=== PATIENT | female | born 1985 | race Caucasian/White ===

== ENCOUNTER 2017-03-05 14:18 | Observation (INO) | payer OTHER ==
[~2017-03-05] VITALS: Ht 162.6 cm; Wt 69.8 kg
[~2017-03-05 14:18] MED LIST changes: -ACET-1256 PO; -HYDR-5688 PO; -ULT50X PO
[2017-03-05] MEDS ORDERED: ONDANSETRON INJ 2 MG/ML 2 ML VIAL IV STA (15:03)
[2017-03-05] MEDS ORDERED: HYDROmorphone INJ 1 MG/ML SYR IV STA (15:03)
[2017-03-05] MEDS ORDERED: SODIUM CHLORIDE 0.9% 1000ML 1,000 ML IV STA (15:03)
[2017-03-05] MEDS ORDERED: DEXAMETHASONE SOD INJ 10 MG/ML VIAL IV ONE (15:15)
[2017-03-05] MEDS ORDERED: ACET-1256 PO (15:15)
--- NOTE | 2017-03-05 15:31 | DIAGNOSTIC IMAGING REPORT ---
CHEST ONE VIEW PORTABLE CLINICAL HISTORY: CHEST PAIN, PRE-OP preoperative COMPARISON STUDY: No previous studies for comparison. FINDINGS: The bones soft tissues and hemidiaphragms are normal. The cardiomediastinal silhouette is normal. The lungs are clear. The pulmonary vasculature is normal. IMPRESSION: Negative chest. Electronically signed by: Juan Marc M.D. 03/05/2017 3:30 PM Dictated Date/Time: 03/05/2017 3:30 PM
[2017-03-05 15:38] LABS: ISTAT CREATININE 0.9 mg/dl (0.6-1.3); ISTAT HEMOGLOBIN 14.3 g/dl (12.0-16.0); ISTAT IONIZED CALCIUM 1.18 mmol/l (1.12-1.32)
[2017-03-05 15:49] LABS: PROTHROMBIN TIME (PATIENT) 10.5 SECONDS (9.0-12.0)
[2017-03-05 16:01] LABS: ALKALINE PHOSPHATASE 56 U/L (45-117); ALT/SGPT 28 U/L (12-78); AST/SGOT 15 U/L (15-37)
[2017-03-05] MEDS ORDERED: LORAZEPAM 2 MG/ML 1 ML VIAL IV STA (16:11)
[2017-03-05] MEDS ORDERED: HYDROmorphone INJ 0.5 MG/0.5 ML SYR IV STA (16:11)
--- NOTE | 2017-03-05 16:27 | EMERGENCY ROOM VISIT NOTE ---
History First contact with patient: 14:46 Chief Complaint: BACK PAIN Stated Complaint: EXTREME PAIN IN NECK, HERNIATED DISC History of Present Illness The patient is a 31 year old female who presents to the Emergency Room with complaints of a bandlike sensation around her mid thorax and chest with mild shortness of breath. The patient reports that she has a known history of several cervical herniated disks. She is scheduled for a cervical fusion this coming Thursday, or 4 days from now. Her surgeon is Dr. Muir. The patient was in her preanesthesia consultation when she developed this pain. She reports that she has had bilateral upper extremity pain and numbness due to her neck condition, but has never had any pain in the middle of her back. The patient denies any anterior chest pressure or diaphoresis. She has had some nausea. The patient has been taking Tylenol without relief. She was able to have some relief with ibuprofen, but cannot take ibuprofen because of her planned surgery. Tramadol causes headaches, and Percocet causes nausea and vomiting. She was seen here recently and treated with morphine without relief. She does not recall being administered Dilaudid for pain either on her previous ER visit or prior pain management. She rates her discomfort a 10 out of 10. The patient denies any cardiopulmonary history. She reports that her mother has had bilateral PEs, and the patient has also had several miscarriages. She did have a comprehensive hematology workup that was normal. Review of Systems HEENT: Denies dizziness, visual problems, hearing loss, tinnitus. Denies difficulty swallowing or oral lesions. PULMONARY: Denies cough, shortness of breath, sputum production or hemoptysis. CARDIOVASCULAR: See history of present illness, otherwise denies palpitations, dyspnea on exertion, orthopnea or peripheral edema. GASTROINTESTINAL: Denies diarrhea, constipation, vomiting, or abdominal pain. GENITOURINARY: Denies dysuria, frequency, urgency or nocturia. NEUROLOGIC: Denies history of epilepsy, CVA, TIA or chronic headaches. MUSCULOSKELETAL: Denies history of joint tenderness/swelling. SKIN: Denies rashes or lesions. PSYCHIATRIC: Denies history of depression or mental illness. ENDOCRINE: Denies history of diabetes or thyroid disorders. Past Medical/Surgical History Medical Problems: (1) Herniation of intervertebral disc of cervical region (2) Pelvic pain affecting in first trimester, antepartum Family History Diabetes mellitus Hypertension Social History Smoking Status: Former Smoker Alcohol Use: none Drug Use: none Marital Status: Housing Status: lives with family Occupation Status: employed Current/Historical Medications Scheduled Metoprolol Succ (Toprol Xl) (Toprol-Xl), 12.5 MG PO HS Ranitidine Hcl (Zantac), 150 MG PO PRN Tizanidine (Zanaflex), 4 MG PO Q6H Scheduled PRN Acetaminophen (Tylenol), 1,000 MG PO Q6 PRN for Pain Allergies Coded Allergies: Latex (Verified Allergy, Mild, HIVES, 03/05/17) Nickel (Unverified Allergy, Unknown, RASH,ITCHING WITH JEWELRY, 03/05/17) Oxycodone (Unverified Allergy, Unknown, NAUSEA AND ABD PAIN, 03/05/17) Physical Exam Vital Signs Date Time Temp Pulse Resp B/P (MAP) Pulse Ox O2 Delivery O2 Flow Rate FiO2 03/05/17 14:38 37.4 72 20 113/80 97 Room Air Physical Exam CONSTITUTIONAL: Healthy and well nourished. Alert and oriented X 3 with positive affect. Patient appears in moderately severe discomfort. HEENT: Normocephalic, atraumatic. Pupils equal, round and reactive. Ears and nares are clear. NECK: She has discomfort with any range of motion of the neck. RESPIRATORY: Clear to auscultation bilaterally with no wheezing, crackles, rhonchi or stridor. CARDIOVASCULAR: Regular rate and rhythm with no murmurs, rubs or gallops. GASTROINTESTINAL: Bowel sounds present in all quadrants. Soft and nontender to palpation. MUSCULOSKELETAL: The patient has generalized tenderness to palpation through the middle thoracic region and ribs. She has no pain through the costochondral joints. No other tenderness to palpation through the paraspinous muscles. The patient has equal hand tire shop mechanic bilaterally. Ankle plantar/dorsiflexion strength is 5 out of 5 bilaterally. INTEGUMENTARY: No rash or other significant dermatologic conditions noted. Particularly the patient has no dermatomal thoracic rash. HEMATOLOGIC: No ecchymosis or petechiae. NEUROLOGIC: No focal neurologic deficits noted within the thorax. Bilateral upper extremity median, radial and ulnar motor and sensory are intact. Medical Decision & Procedures ER Provider Diagnostic Interpretation: My interpretation of the patient's recent ECG performed at 1:19 PM showed a sinus rhythm with premature supraventricular complex. There were no other previous ECGs for comparison. ECG evaluation in the emergency department again showed a sinus rhythm of 66 bpm with a premature atrial complex. No ST elevation or other concerning conduction abnormalities are noted. My interpretation of a portable chest x-ray does not show any consolidations, pneumothorax or cardiac prominence. Radiologist report is as follows: CHEST ONE VIEW PORTABLE CLINICAL HISTORY: CHEST PAIN, PRE-OP preoperative COMPARISON STUDY: No previous studies for comparison. FINDINGS: The bones soft tissues and hemidiaphragms are normal. The cardiomediastinal silhouette is normal. The lungs are clear. The pulmonary vasculature is normal. IMPRESSION: Negative chest. Laboratory Results Test 03/05/17 15:20 03/05/17 15:25 Prothrombin Time 10.5 SECONDS (9.0-12.0) Prothromb Time International Ratio 1.0 (0.9-1.1) Activated Partial Thromboplast Time 25.0 SECONDS (21.0-31.0) Partial Thromboplastin Ratio 1.0 D-Dimer 290 ug/L FEU (0-500) Total Bilirubin 0.3 mg/dl (0.2-1) Direct Bilirubin < 0.1 mg/dl (0-0.2) Aspartate Amino Transf (AST/SGOT) 15 U/L (15-37) Alanine Aminotransferase (ALT/SGPT) 28 U/L (12-78) Alkaline Phosphatase 56 U/L (45-117) Troponin I < 0.015 ng/ml (0-0.045) Total Protein 7.9 gm/dl (6.4-8.2) Albumin 4.3 gm/dl (3.4-5.0) Lipase 115 U/L (73-393) Bedside Hemoglobin 14.3 g/dl (12.0-16.0) Bedside Hematocrit 42 % (37-47) Bedside Sodium 140 mEq/L (135-144) Bedside Potassium 4.3 mEq/L (3.3-5.0) Bedside Chloride 100 mEq/L (101-112) Bedside Total CO2 26 mEq/l (24-31) Anion Gap 19.0 mmol/L (16-25) Bedside Blood Urea Nitrogen 14 mg/dl (7-18) Bedside Creatinine 0.9 mg/dl (0.6-1.3) Bedside Glucose (other) 94 mg/dl (70-99) Bedside Ionized Calcium (Dev) 1.18 mmol/l (1.12-1.32) The above labs were reviewed and were grossly normal, including normal d-dimer and troponin. I also reviewed laboratory studies that were just drawn a few hours ago for preop testing. Medications Administered Medications (Trade) Dose Ordered Sig/Kandace Route Start Time Stop Time Status Last Admin Dose Admin Dexamethasone Sodium Phosphate (Decadron Inj) 10 mg NOW ONCE IV 03/05/17 15:15 03/05/17 15:16 DC 03/05/17 15:39 10 MG Hydromorphone HCl (Dilaudid Inj) 1 mg NOW STAT IV 03/05/17 15:03 03/05/17 15:09 DC 03/05/17 15:37 1 MG Sodium Chloride 1,000 ml @ 999 mls/hr Q1H1M STAT IV 03/05/17 15:03 03/05/17 16:03 DC 03/05/17 15:39 999 MLS/HR Ondansetron HCl (Zofran Inj) 4 mg NOW STAT IV 03/05/17 15:03 03/05/17 15:09 DC 03/05/17 15:37 4 MG Procedure 1. IV hydration: The patient received a liter normal saline bolus 2. IV medications: The patient was administered Dilaudid 1 mg, Zofran 4 mg and Decadron 10 mg IVP. The patient was administered an additional Dilaudid 0.5 mg and Ativan 0.5 mg IVP. ED Course Patient history and physical exam were performed. Nurse's notes were reviewed. Vital signs were reviewed and normal. The patient is afebrile, normotensive and not tachycardic. O2 saturation is 97% on room air. The patient appears in moderately severe discomfort. I did review medical records, showing that the patient's preoperative labs are currently pending with a normal CBC and urinalysis. The patient also had a copy of her MRI results on her smartphone. Quick review of the radiologist report shows a small to moderate disc herniation at C3-4 with an annular tear, as well as a central to right paracentral C6-7 hernia. Because of concern for possible cardiopulmonary etiology for her current pain, I did elect to perform additional laboratory studies. IV access was established , and labs were drawn. The patient was hydrated with normal saline, and received IV analgesics as discussed in the previous Procedure section. Repeat ECG was performed and grossly normal with only a premature atrial complex. I also reviewed her ECG that was ordered for her preoperative labs, showing the same pattern. Portable chest x-ray was normal. Review of labs in the ED shows a normal d-dimer and troponin, therefore I feel that her risk for PE and cardiac event are unlikely. Upon further reevaluation, the patient was complaining of a twitching sensation around her mid thoracic region, and feels like she is nervous. She also still had moderate pain. At this point, she was administered IV Dilaudid and Ativan. The case was further discussed with Dr. Chapman, ED attending physician, who agrees with contacting Dr. Muir regarding her intractable pain, likely secondary to her cervical herniated disc. Case was further discussed with Dr. Muir who will schedule the patient for surgery first thing in the morning. The patient will be placed in observation status for intractable pain, with planned surgery in the morning. Medical Decision Patient presents with symptoms while undergoing preoperative testing at our facility. The patient has a known history of herniated cervical disc. The patient developed a new pressure like sensation around her mid thorax. Her workup today is not suggestive of pulmonary embolus, myocardial infarction, pneumothorax, pneumonia or other acute intrathoracic etiology. The patient has had a recent MRI that was reviewed by her spine surgeon with a planned cervical fusion. Impression Primary Impression: Thoracic back pain Additional Impression: Cervical disc herniation Departure Information Referrals Jamie Gamino M.D. (PCP) Patient Instructions [facility] Problem Qualifiers Primary Impression: Thoracic back pain Chronicity: acute Back pain laterality: bilateral Qualified Codes: M54.6 - Pain in thoracic spine
[2017-03-05] MEDS: LACTATED RINGER'S 1000ML 1,000 ML IV SCH (16:32)
[2017-03-05] MEDS ORDERED: TRAMADOL HCL 50 MG TAB PO PRN (16:45)
[2017-03-05] MEDS ORDERED: LORAZEPAM INJ 1 MG in SYRINGE 0.5 ML IV PRN (16:45)
[2017-03-05] MEDS ORDERED: ACETAMINOPHEN 325 MG TAB PO PRN (16:45)
[2017-03-05] MEDS ORDERED: LORAZEPAM 1 MG TAB PO PRN (16:45)
[2017-03-05 16:55] LABS: PREG INTERNAL NEGATIVE QC NEG CLEAR BACKGROUND; PREG INTERNAL POSITIVE QC POS CONTROL LINE
[2017-03-05 16:57] LABS: BASO % 0.7 %; BASO ABS # 0.06 K/uL (0-0.2); COMPLETE YES; EOS % 1.3 %; HEMATOCRIT 41.1 % (37-47); IG% 0.2 %; LYMPH % 35.4 %; LYMPH ABS # 3.11 K/uL (1.2-3.4); MEAN CORPUSCULAR HEMOGLOBIN 31.2 pg (25-34); MEAN CORPUSCULAR HGB CONC 33.6 g/dl (32-36); MEAN PLATELET VOLUME 9.9 fL (7.4-10.4); NEUT % 56.4 %; PLATELET COUNT 238 K/uL (130-400); RED BLOOD COUNT 4.42 M/uL (4.2-5.4); WHITE BLOOD COUNT 8.79 K/uL (4.8-10.8)
[2017-03-05 17:00] LABS: BLOOD UREA NITROGEN 12 mg/dl (7-18); BUN/CREATININE RATIO 10.8 (10-20); CALCIUM 9.2 mg/dl (8.5-10.1); CHLORIDE 105 mmol/L (98-107); GLUCOSE 92 mg/dl (70-99); POTASSIUM 4.5 mmol/L (3.5-5.1); SODIUM 139 mmol/L (136-145)
[2017-03-05] MEDS ORDERED: IV FLUIDS COMPLETED PRN (17:00)
--- NOTE | 2017-03-05 17:17 | History and Physical ---
History & Physical Date & Time of Service: Mar 05, 2017 at 17:13 Chief Complaint: Extreme Pain In Neck, Herniated Disc Primary Care Physician: Jamie Gamino M.D. History of Present Illness Source: patient 31-year-old [id number] female partially one-month severe neck and arm pain. An extensive course of nonoperative care including a trial of epidural injections. Complains of significant bilateral arm pain left greater than right. Marked difficulty with cervical range of motion secondary to reproduction of pain. She notes clumsiness and difficulty using her hands with fine motor skills. Also notes changes in balance. Family History Diabetes mellitus Hypertension Social History Smoking Status: Former Smoker Drug Use: none Marital Status: Occupational Status: employed Multi-Drug Resistant Organisms History of MDRO: No Allergies Coded Allergies: Latex (Verified Allergy, Mild, HIVES, 03/05/17) Nickel (Unverified Allergy, Unknown, RASH,ITCHING WITH JEWELRY, 03/05/17) Oxycodone (Unverified Allergy, Unknown, NAUSEA AND ABD PAIN, 03/05/17) Home Medications Scheduled Metoprolol Succ (Toprol Xl) (Toprol-Xl), 12.5 MG PO HS Ranitidine Hcl (Zantac), 150 MG PO PRN Tizanidine (Zanaflex), 4 MG PO Q6H Scheduled PRN Acetaminophen (Tylenol), 1,000 MG PO Q6 PRN for Pain Physical Exam Vital Signs Date Time Temp Pulse Resp B/P (MAP) Pulse Ox O2 Delivery O2 Flow Rate FiO2 03/05/17 16:41 90 20 114/73 98 Room Air 03/05/17 14:38 37.4 72 20 113/80 97 Room Air Patient is in obvious distress. She ambulates with a steady gait but struggles with heel and toe walking. Bench exam reveals marked limitations to cervical range of motion. She expressed radiation of pain into the upper thoracic region with cervical extension. She has a 4+ over 5 strength to detail testing bilateral upper extremities. She has decreased sensation to light touch and cold left arm compared to the right. Diagnostics Laboratory Results Results Past 24 Hours Test 03/05/17 15:20 03/05/17 15:25 Range/Units White Blood Count 8.79 4.8-10.8 K/uL Red Blood Count 4.42 4.2-5.4 M/uL Hemoglobin 13.8 12.0-16.0 g/dL Hematocrit 41.1 37-47 % Mean Corpuscular Volume 93.0 80-100 fL Mean Corpuscular Hemoglobin 31.2 25-34 pg Mean Corpuscular Hemoglobin Concent 33.6 32-36 g/dl Platelet Count 238 130-400 K/uL Mean Platelet Volume 9.9 7.4-10.4 fL Neutrophils (%) (Auto) 56.4 % Lymphocytes (%) (Auto) 35.4 % Monocytes (%) (Auto) 6.0 % Eosinophils (%) (Auto) 1.3 % Basophils (%) (Auto) 0.7 % Neutrophils # (Auto) 4.96 1.4-6.5 K/uL Lymphocytes # (Auto) 3.11 1.2-3.4 K/uL Monocytes # (Auto) 0.53 0.11-0.59 K/uL Eosinophils # (Auto) 0.11 0-0.5 K/uL Basophils # (Auto) 0.06 0-0.2 K/uL RDW Standard Deviation 42.8 36.4-46.3 fL RDW Coefficient of Variation 12.5 11.5-14.5 % Immature Granulocyte % (Auto) 0.2 % Immature Granulocyte # (Auto) 0.02 0.00-0.02 K/uL Prothrombin Time 10.5 9.0-12.0 SECONDS Prothromb Time International Ratio 1.0 0.9-1.1 Activated Partial Thromboplast Time 25.0 21.0-31.0 SECONDS Partial Thromboplastin Ratio 1.0 D-Dimer 290 0-500 ug/L FEU Sodium Level 139 136-145 mmol/L Potassium Level 4.5 3.5-5.1 mmol/L Chloride Level 105 98-107 mmol/L Blood Urea Nitrogen 12 7-18 mg/dl Creatinine 1.10 0.60-1.20 mg/dl Estimated GFR () 76.4 Estimated GFR (Non- 65.9 BUN/Creatinine Ratio 10.8 10-20 Random Glucose 92 70-99 mg/dl Calcium Level 9.2 8.5-10.1 mg/dl Total Bilirubin 0.3 0.2-1 mg/dl Direct Bilirubin < 0.1 0-0.2 mg/dl Aspartate Amino Transf (AST/SGOT) 15 15-37 U/L Alanine Aminotransferase (ALT/SGPT) 28 12-78 U/L Alkaline Phosphatase 56 45-117 U/L Troponin I < 0.015 0-0.045 ng/ml Total Protein 7.9 6.4-8.2 gm/dl Albumin 4.3 3.4-5.0 gm/dl Lipase 115 73-393 U/L Human Chorionic Gonadotropin, Qual NEG NEG Bedside Hemoglobin 14.3 12.0-16.0 g/dl Bedside Hematocrit 42 37-47 % Bedside Sodium 140 135-144 mEq/L Bedside Potassium 4.3 3.3-5.0 mEq/L Bedside Chloride 100 101-112 mEq/L Bedside Total CO2 26 24-31 mEq/l Anion Gap 19.0 16-25 mmol/L Bedside Blood Urea Nitrogen 14 7-18 mg/dl Bedside Creatinine 0.9 0.6-1.3 mg/dl Bedside Glucose (other) 94 70-99 mg/dl Bedside Ionized Calcium (Dev) 1.18 1.12-1.32 mmol/l Diagnostic Radiology MRI of the cervical spine demonstrates evidence of a massive disc herniation C6 7 with severe canal encroachment and cord contour change. This associated bilateral neural foraminal stenosis. There is a modest central disc herniation C34. Impression Assessment and Plan Assessment herniated nucleus pulposus C6 7 with myeloradiculopathy. Plan at this time she's from extensive course of nonoperative care were then proceed with anterior cervical discectomy and fusion C6 7. Risks benefits pros, and alternatives were outlined in detail. Risk include but not limited to from anesthesia upon the stroke process nerve damage blood loss, transfusion infection primary operation dysphonia and dysphagia. Hopefully marked improvement of her cervicalgia and arm symptoms. Resuscitation Status FULL RESUSCITATION VTE Prophylaxis VTE Risk Assessment Done? Y/N: Yes Risk Level: Low
[2017-03-05 17:30] VITALS: BP 112/73; PULSE 62; TEMP 36.3; O2SAT 99
[2017-03-05 17:45] VITALS: BP 114/73; TEMP 37.4; Ht 162.6 cm; Wt 69.8 kg
[2017-03-05 17:45] LABS: CARBON DIOXIDE 27 mmol/L (21-32)
[2017-03-05] MEDS ORDERED: PATIENT'S HEIGHT AND/OR WEIGHT NEEDED SCH (18:00)
--- NOTE | 2017-03-05 19:11 | Anesthesiology Progress Note ---
Pre-OP Anesthesia Assessment Date of Note Mar 05, 2017. Review patient information reviewed, chart reviewed, labs reviewed, acceptable for surgery Notes 31 yo female has HNP cervical spine. Scheduled for ACDF. PMH significant for GERD. Had PONV after surgery for Chiari malformation. Otherwise satisfactory condition for general anesthesia. Discussed with pt who expressed understanding and signed consent.
[2017-03-05] MEDS ORDERED: SCOPOLAMINE 1.5 MG TDSY TD SCH (20:00)
[2017-03-05] MEDS: METOPROLOL SUCC 25MG EXT REL TAB PO SCH (20:26)
[2017-03-05] MEDS: DOCUSATE SODIUM 100 MG CAP PO SCH (20:26)
[2017-03-05] MEDS: ONDANSETRON INJ 2 MG/ML 2 ML VIAL IV PRN (22:19)
[2017-03-05] MEDS: RANITIDINE HCL 150 MG TAB PO PRN (22:21)
[2017-03-05] MEDS: CYCLOBENZAPRINE HCL 10 MG TAB PO PRN (22:21)
[2017-03-05] MEDS ORDERED: NURSING VERBAL MED ORDER ONE (22:45)
[2017-03-05] MEDS: HYDROmorphone INJ 0.5 MG/0.5 ML SYR IV PRN (22:54)
[2017-03-05 23:00] VITALS: BP 112/72; PULSE 92; TEMP 36.7; O2SAT 94
[2017-03-05] MEDS: CHECK SCOPOLAMINE PATCH PLACEMENT SCH (23:41)
[2017-03-06] VITALS (14 sets, daily range): BP systolic 101–120; BP diastolic 60–85; PULSE 62–110; TEMP 36.5–37.1; O2SAT 93–100
[2017-03-06] MEDS ORDERED: CEFAZOLIN 1000MG/55 ML D5W 55 ML IV SCH (06:00)
[2017-03-06] MEDS: LACTATED RINGER'S 1000ML 1,000 ML IV SCH ×3 (06:01→21:47)
[2017-03-06] MEDS: ONDANSETRON INJ 2 MG/ML 2 ML VIAL IV PRN (06:05)
[2017-03-06] MEDS: HYDROmorphone INJ 0.5 MG/0.5 ML SYR IV PRN ×4 (06:06→21:48)
[2017-03-06] MEDS ORDERED: FENTANYL CITRATE INJ 50 MCG/1 ML 2 ML VIAL ONE ×3 (06:41→09:01)
[2017-03-06] MEDS ORDERED: MIDAZOLAM HCL 1 MG/ML 2ML VIAL ONE ×2 (06:41→09:13)
[2017-03-06] MEDS ORDERED: BACITRACIN 50000 UNIT VIAL ONE (06:49)
[2017-03-06] MEDS ORDERED: SODIUM CHLORIDE 0.9% PF 50 ML VIAL ONE (06:49)
--- NOTE | 2017-03-06 07:35 | History & Physical Bridge Note ---
H&P Re-Evaluation Bridge Note: I have examined the patient, reviewed the History & Physical and in the interval since the performance of the History & Physical I have noted the following changes of clinical significance: No changes noted
[2017-03-06] MEDS ORDERED: HYDROmorphone INJ 2 MG/ML SYR/VIAL ONE ×2 (08:05→08:58)
[2017-03-06] MEDS ORDERED: EpHEDrine SULFATE INJ 50 MG/ML AMP IV PRN (08:15)
[2017-03-06] MEDS ORDERED: PROMETHAZINE HCL INJ 12.5 MG in SODIUM CHLORIDE 0.9% 50ML 50 ML IV PRN (08:15)
[2017-03-06] MEDS ORDERED: ATROPINE SULFATE 0.1 MG/ML 5ML SYR IV PRN (08:15)
[2017-03-06] MEDS ORDERED: ONDANSETRON INJ 2 MG/ML 2 ML VIAL IV PRN ×2 (08:15→09:15)
[2017-03-06] MEDS ORDERED: DiphenhydrAMINE HCL 50 MG/ML VIAL ONE (08:19)
[2017-03-06] MEDS ORDERED: ONDANSETRON INJ 2 MG/ML 2 ML VIAL ONE ×2 (08:19→09:57)
[2017-03-06] MEDS ORDERED: METOCLOPRAMIDE HCL INJ 5 MG/ML 2 ML VIAL ONE (08:19)
[2017-03-06] MEDS ORDERED: RANITIDINE HCL 25 MG/ML INJ ONE (08:19)
[2017-03-06] MEDS ORDERED: DEXAMETHASONE SOD INJ 4 MG/ML VIAL ONE (08:19)
[2017-03-06] MEDS ORDERED: FLOSEAL HEMOSTATIC MATRIX 5ML TOP ONE (08:54)
[2017-03-06] MEDS: DOCUSATE SODIUM 100 MG CAP PO SCH ×2 (09:00→21:45)
--- NOTE | 2017-03-06 09:10 | [facility] Operative Report ---
Operative Report Operative Date Mar 06, 2017. Pre-Operative Diagnosis Herniated Nucleus Pulposus C6-C7 Myeloradicalopathy Post-Operative Diagnosis Same as preoperative diagnosis. Procedure(s) Performed #1 anterior cervical discectomy bilateral foraminotomies C6 7. #2 anterior cervical arthrodesis C6 7. #3 placement of cortical allograft filled with DBM 7 mm in height C6 7. #4 application of globus plate and screws across C6 7. Surgeon Dr. Muir Quoter Surgeon(s) Tamir Titus PA-C Estimated Blood Loss 10ml Findings Severe stenosis Specimens None per surgeon. Description of Procedure Patient was met with preoperatively case discussed all questions were addressed. That point patient was taken back to the operative suite and after undergoing successful inhibition placed in a supine position on the Mike table head in the [place] headholder. Anterior cervical spine was then prepped and draped in the normal sterile fashion. With the assistance of fluoroscopy identified the C6 7 disc space. A transverse incision was placed along the right anterior aspect of the cervical spine overlying this region. Sharp dissection with the assistance of bipolar cautery was performed onto an exposing the anterior cervical spine C67. Self-retaining retractors placed. We verified our position with fluoroscopy. Complete discectomy was then performed out to the uncovertebral joints bilaterally. Hegins distracting pins were utilized to assist us no visualization. I did remove all posterior annular fibers and longitudinal ligament identifying massive amounts of disc material within the canal. This was removed in its entirety. Endplates were then burred to subcortical bleeding bone and a 7 mm cortical R graft filled with DBM tapped in position. Distracting of breast was removed and a globus plate locked in position. Incision was in copious irrigated explored to ensure there is no damage to surrounding structures remaining bleeding 10 round MEL drain inserted and incision closed with 2 Vicryl fascia for Monocryl for final skin closure sterile dressing Steri-Strips placed patient awakened taken to PACU in stable condition. Please note Jamie record was present throughout the entire procedure involved with patient positioning exposure intricate components of the procedure and final skin closure. I attest to the content of the Intraoperative Record and any orders documented therein. Any exceptions are noted below.
[2017-03-06] MEDS ORDERED: LORAZEPAM 0.5 MG TAB PO PRN (09:15)
[2017-03-06] MEDS ORDERED: DEXAMETHASONE INJ 8 MG in SYRINGE 0 ML IV PRN (09:15)
[2017-03-06] MEDS ORDERED: RACEPINEPHRINE 2.25% NEBU SOLN 0.5 ML VIAL INH PRN (09:15)
[2017-03-06] MEDS ORDERED: SCOPOLAMINE 1.5 MG TDSY TD SCH (09:15)
[2017-03-06] MEDS ORDERED: LORAZEPAM INJ 0.5 MG in SYRINGE 0.75 ML IV PRN (09:15)
[2017-03-06] MEDS ORDERED: DO NOT ADMINISTER PNEUMOCOCCAL VACCINE PRN ×2 (09:15)
[2017-03-06] MEDS ORDERED: ACETAMINOPHEN IV 1,000 MG in EMPTY BAG 0 ML IV PRN (09:15)
[2017-03-06] MEDS ORDERED: DiphenhydrAMINE HCL 50 MG/ML VIAL IV PRN (09:15)
[2017-03-06] MEDS ORDERED: MAGNESIUM HYDROXIDE SUSP 30 ML UDC PO PRN (09:15)
[2017-03-06] MEDS ORDERED: DO NOT ADMINISTER FLU VACCINE PRN ×3 (09:15)
[2017-03-06] MEDS ORDERED: NALOXONE HCL 0.4 MG/1 ML VIAL/CARP IV PRN (09:15)
[2017-03-06] MEDS: FENTANYL CITRATE INJ 50 MCG/1 ML 2 ML VIAL IV PRN ×3 (09:25→09:35)
--- NOTE | 2017-03-06 09:30 | DIAGNOSTIC IMAGING REPORT ---
CERVICAL 2 OR 3 VIEWS CLINICAL HISTORY: 31 years-old Female presenting with ACDF C6-7. TECHNIQUE: 3 fluoroscopic spot images were obtained including frontal and lateral views of the cervical spine as part of an intraoperative procedure. COMPARISON: None. FINDINGS/IMPRESSION: Anterior cervical plate and screw fixation of C6-7. No gross evidence of prevertebral soft tissue swelling. Anatomic alignment of the cervical spine. Please see separately dictated surgical report for further details. Electronically signed by: Vik Damon M.D. 03/06/2017 9:29 AM Dictated Date/Time: 03/06/2017 9:28 AM
[2017-03-06] MEDS: HYDROmorphone INJ 1 MG/ML SYR IV PRN ×2 (09:45→09:50)
[2017-03-06] MEDS ORDERED: NEOSTIGMINE METHYLSULFATE 1 MG/ML 10ML VIAL ONE (09:57)
[2017-03-06] MEDS ORDERED: ROCURONIUM BROMIDE 10 MG/ML 5 ML VIAL ONE (09:57)
[2017-03-06] MEDS ORDERED: PROPOFOL IV EMULSION 10 MG/ML 20 ML VIAL IV ONE (09:57)
[2017-03-06] MEDS ORDERED: GLYCOPYRROLATE INJ 0.2 MG/ML VIAL ONE (09:57)
[2017-03-06] MEDS ORDERED: LIDOCAINE HCL 2% 2 ML VIAL (20MG/ML) ONE (09:57)
--- NOTE | 2017-03-06 10:07 | Anesthesiology Progress Note ---
Anesthesia Post Op Note Date & Time Mar 06, 2017 at 10:07 Vital Signs Pain Intensity: 8 Vital Signs Past 12 Hours Date Time Temp Pulse Resp B/P (MAP) Pulse Ox O2 Delivery O2 Flow Rate FiO2 03/06/17 10:00 65 14 122/65 100 Nasal Cannula 2 03/06/17 09:50 62 14 114/74 100 Nasal Cannula 2 03/06/17 09:40 62 16 116/75 100 Nasal Cannula 2 03/06/17 09:30 65 16 117/72 100 Nasal Cannula 2 03/06/17 09:20 90 18 114/71 100 Nasal Cannula 2 03/06/17 09:15 36.0 64 14 119/63 100 Nasal Cannula 2 03/06/17 06:47 37.0 92 16 113/70 (84) 99 Room Air 03/06/17 00:11 Room Air 03/05/17 23:00 36.7 92 18 112/72 (85) 94 Room Air Notes Mental Status: alert / awake / arousable, participated in evaluation Pt Amnestic to Procedure: Yes Nausea / Vomiting: adequately controlled Pain: adequately controlled Airway Patency, RR, SpO2: stable & adequate BP & HR: stable & adequate Hydration State: stable & adequate Anesthetic Complications: no major complications apparent
[2017-03-06] MEDS ORDERED: IV FLUIDS COMPLETED PRN (10:30)
[2017-03-06] MEDS: HYDROCODONE/ACETAMOPHEN 5/325MG TAB PO PRN ×3 (10:49→20:28)
[2017-03-06] MEDS: CHECK SCOPOLAMINE PATCH PLACEMENT SCH ×3 (10:49→23:52)
[2017-03-06] MEDS: CYCLOBENZAPRINE HCL 10 MG TAB PO PRN ×2 (11:05→20:28)
[2017-03-06] MEDS ORDERED: ULT50X PO (12:19)
--- NOTE | 2017-03-06 12:20 | Discharge Instructions ---
Discharge Instructions Date of Service Mar 06, 2017. Admission Reason for Admission: Extreme Pain In Neck, Herniated Disc Discharge Discharge Diagnosis / Problem: cervical stenosis Discharge Goals Goal(s): Improve function Activity Recommendations Activity Limitations: per Instructions/Follow-up section . Instructions / Follow-Up Instructions / Follow-Up ACTIVITY RECOMMENDATIONS: SELF CARE INSTRUCTIONS AFTER CERVICAL FUSIONS 1. No smoking. Smoking drastically decreases the chance of a solid fusion. 2. No bending, lifting more than 5 pounds, or twisting (roll like a log when turning in bed). 3. You may shower 3 days after surgery. Thoroughly dry wound. Do not soak in the tub. 4. Cervical collar: Must be worn at all times including sleeping. You may remove the brace only to bath, eat and if you are sitting in a recliner. 5. Please walk as much as you can for exercise. Gradually increase the distance that you walk as your endurance increases. SPECIAL CARE INSTRUCTIONS: VERY IMPORTANT TO READ AND REVIEW A. Do not take any anti-inflammatory medications (i.e. Indocin, Advil, Aspirin, Naprosyn, Aleve, Motrin, etc.) as these may inhibit the chance of a solid fusion. Tylenol is okay to take. B. Your surgical incision has been closed with a cosmetic suture under the skin that will dissolve in about 6 weeks. In 14 days, you can use a pair of clean scissors and cut the suture that is left outside of the skin at the ends of your incision. C. Complications are uncommon, but please contact us if you have any signs or symptoms of: 1. wound infection (fever higher than 102.5 degrees F, redness, separation of wound, drainage, or increasing pain from the incision) 2. blood clots in legs (pain, swelling, redness and warmth in legs) 3. urinary tract infection (fever higher than 102.5 degrees, burning upon urination or increased frequency of urination) 4. nerve problems (inability to walk on your toes or heels, numbness, loss of bowel or bladder control) 5. any other symptoms that concern you. D. Please call the office at if you have any concerns or questions about your operation or recovery. MANAGING PAIN AFTER SPINAL SURGERY 1. Narcotic medication is intended for short-term use and will be provided for surgical pain. Surgical pain usually lasts for a period of 4-6 weeks. Narcotic medication includes Percocet, Vicodin, Darvocet, Tylenol #3 or Lortab. 2. Longer-term pain is more appropriately treated with non-narcotic medication such as Tylenol ES. 3. Muscle spasm is not appropriately treated with narcotics. Muscle relaxers such as Soma, Flexeril or Skelaxin can be used along with Tylenol ES. 4. Remember that we all live with some "aches and pains". This is not unusual or uncommon after an injury or as we get older. 5. We will provide appropriate medication within the normal guidelines of their prescribed use. We will also be very cautious and aware of potential abuse and extended duration of patients' medication needs. 6. Please allow 2-3 days to process refills. Prescriptions will not be mailed but must be picked up at the office. FOLLOW UP VISIT: Keep your scheduled follow-up appointment. Any questions, please call the office at . Current Hospital Diet Patient's current hospital diet: Clear Liquid Diet Discharge Diet Recommended Diet: Regular Diet Procedures Procedures Performed: #1 anterior cervical discectomy bilateral foraminotomies C6 7. #2 anterior cervical arthrodesis C6 7. #3 placement of cortical allograft filled with DBM 7 mm in height C6 7. #4 application of globus plate and screws across C6 7. Pending Studies Studies pending at discharge: no Medical Emergencies . Who to Call and When: Medical Emergencies: If at any time you feel your situation is an emergency, please call 911 immediately. . Non-Emergent Contact Non-Emergency issues call your: Primary Care Provider . "Provider Documentation" section prepared by Will Muir. . VTE Core Measure Inpt VTE Proph given/why not?: Gabriel Day, SCD's
[2017-03-06] MEDS ORDERED: COUGH DROP (SUGAR FREE) LOZ 24 LOZ/1 BOX ONE (14:16)
[2017-03-06] MEDS ORDERED: NURSING DECISION MEDICATION ORDER SCH (14:30)
[2017-03-06] MEDS ORDERED: COUGH DROP (SUGAR FREE) LOZ 24 LOZ/1 BOX PO PRN (14:30)
[2017-03-06] MEDS: CEFAZOLIN IV 1,000 MG in DEXTROSE 5% 50ML 50 ML IV SCH ×2 (15:51→23:53)
[2017-03-06] MEDS: DEXAMETHASONE INJ 6 MG in SYRINGE 0 ML IV SCH ×2 (15:51→23:53)
[2017-03-06] MEDS ORDERED: CHECK SCOPOLAMINE PATCH PLACEMENT SCH (16:00)
[2017-03-06] MEDS ORDERED: DOCUSATE SODIUM 100 MG CAP PO SCH (21:00)
[2017-03-06] MEDS: METOPROLOL SUCC 25MG EXT REL TAB PO SCH (21:44)
[2017-03-06] MEDS: RANITIDINE HCL 150 MG TAB PO PRN (21:45)
[2017-03-07] VITALS (9 sets, daily range): BP systolic 96–109; BP diastolic 55–67; PULSE 69–81; TEMP 36.5–36.8; O2SAT 93–97
[2017-03-07] MEDS: HYDROCODONE/ACETAMOPHEN 5/325MG TAB PO PRN ×3 (02:03→10:16)
[2017-03-07] MEDS: HYDROmorphone INJ 0.5 MG/0.5 ML SYR IV PRN (03:52)
[2017-03-07] MEDS: CHECK SCOPOLAMINE PATCH PLACEMENT SCH (08:14)
[2017-03-07] MEDS: CEFAZOLIN IV 1,000 MG in DEXTROSE 5% 50ML 50 ML IV SCH (08:15)
[2017-03-07] MEDS: CYCLOBENZAPRINE HCL 10 MG TAB PO PRN (08:15)
[2017-03-07] MEDS: DEXAMETHASONE INJ 6 MG in SYRINGE 0 ML IV SCH (08:15)
[2017-03-07] MEDS: DOCUSATE SODIUM 100 MG CAP PO SCH (08:16)
[2017-03-07] MEDS ORDERED: HYDR-5688 PO (09:53)
--- NOTE | 2017-03-07 10:01 | Discharge Summary ---
Orthopedic Discharge Summary Admission Date/Reason Mar 05, 2017 at 16:35 Extreme Pain In Neck, Herniated Disc. Discharge Date/Disposition Mar 07, 2017 Home Diagnosis Principal Diagnosis: Cervical stenosis Admission Physical Exam As per Admitting History & Physical. Hospital Course Patient was admitted with worsening neck and arm symptoms. Subsequently the next morning she underwent anterior cervical discectomy and fusion C6 7. She tolerated this well. She has no hoarseness or swallowing deficits. MEL drain decreased appropriately subsequent discharge home postop day 1. Discharge Instructions Please refer to the electronic Patient Visit Report (Discharge Instructions) for additional information.
[2017-03-08] MEDS ORDERED: BISACODYL 5 MG TABEC PO PRN (06:00)
[2017-03-08] MEDS ORDERED: BISACODYL 10 MG SUPP PR PRN (06:00)
[2017-03-08] MEDS ORDERED: POLYETHYLENE (MIRALAX) 17 GM PACK PO SCH (09:00)
== END 2017-03-07 13:41 | disposition home or self-care (01) ==
LOC: C.EDB 14:19 → C.MSN 16:35 → ENRESERV 17:05 → C.3E 03-06 10:40
PROVIDERS: ADMIT Orthopaedic Surgery Orthopaedic Surgery of the Spine; ATTEND Orthopaedic Surgery Orthopaedic Surgery of the Spine
DX: M48.02 Spinal stenosis, cervical region (principal); Z83.3 Family history of diabetes mellitus; Z82.49 Family history of ischemic heart disease and other diseases of the circulatory system; Z87.891 Personal history of nicotine dependence

== ENCOUNTER → 2017-03-05 | Outpatient (CLI) | payer OTHER ==
[~2017-03-05] VITALS: Ht 162.6 cm; Wt 70.0 kg
[~2017-03-05] MED LIST: ACET-1256 PO; HYDR-5688 PO; METO25TA3 PO; METR-163 PO; PRENTAB26 PO; PROM12.57 PO; RANI150T3 PO; SERT-234 PO; TIZA4CAP PO; ULT50X PO
[2017-03-05 13:33] VITALS: Ht 162.6 cm; Wt 70.0 kg
--- NOTE | 2017-03-05 14:02 | PAT Medication Instructions ---
Service Date Mar 05, 2017. Current Home Medication List Metoprolol Succ (Toprol Xl) (Toprol-Xl), 15 MG PO HS Ranitidine Hcl (Zantac), 150 MG PO PRN Tizanidine (Zanaflex), 4 MG PO Q6H Medication Instructions For Your Scheduled Surgery - Hold the following medications the morning of surgery: Tizanidine (Zanaflex), 4 MG PO Q6H - Take the following medications the morning of surgery with a sip of water OTHERWISE NOTHING TO EAT OR DRINK AFTER MIDNIGHT: Ranitidine Hcl (Zantac), 150 MG PO PRN - Take the following medications as scheduled the night before surgery: Metoprolol Succ (Toprol Xl) (Toprol-Xl), 15 MG PO HS Tizanidine (Zanaflex), 4 MG PO Q6H If you have any questions please call us at [phone] or [phone] or [phone]
[2017-03-05 14:20] LABS: BASO % 0.4 %; BASO ABS # 0.04 K/uL (0-0.2); COMPLETE YES; HEMATOCRIT 41.2 % (37-47); IG% 0.1 %; LYMPH % 32.9 %; LYMPH ABS # 2.94 K/uL (1.2-3.4); MEAN CELL VOLUME 92.2 fL (80-100); MEAN CORPUSCULAR HEMOGLOBIN 31.1 pg (25-34); MEAN CORPUSCULAR HGB CONC 33.7 g/dl (32-36); MEAN PLATELET VOLUME 9.5 fL (7.4-10.4); MONO % 6.3 %; NEUT % 59.3 %; PLATELET COUNT 249 K/uL (130-400); RED BLOOD COUNT 4.47 M/uL (4.2-5.4); WHITE BLOOD COUNT 8.94 K/uL (4.8-10.8)
[2017-03-05 14:36] LABS: URINE APPEARANCE CLEAR (CLEAR); URINE BILIRUBIN NEG (NEG); URINE COLOR YELLOW; URINE NITRITE NEG (NEG); UROBILINOGEN NEG (NEG)
[2017-03-05 14:46] LABS: MANUAL MICROSCOPIC REQUIRED? NO; REVIEW REQ? NO
[2017-03-05 15:08] LABS: BUN/CREATININE RATIO 11.9 (10-20); CALCIUM 8.9 mg/dl (8.5-10.1)
== END | disposition home or self-care (01) ==
LOC: C.LAB 08:00 → C.ACU 12:51 → EDSTATUS 03-09 07:45
PROVIDERS: ATTEND Orthopaedic Surgery Orthopaedic Surgery of the Spine
DX: Z01.810 Encounter for preprocedural cardiovascular examination (principal); Z01.812 Encounter for preprocedural laboratory examination

== ENCOUNTER → 2017-04-24 | Outpatient (CLI) | payer OTHER ==
[~2017-04-24] MED LIST changes: +ACET-1256 PO; +HYDR-5688 PO; -METR-163 PO; -PRENTAB26 PO; -PROM12.57 PO; -SERT-234 PO; +ULT50X PO
== END | disposition home or self-care (01) ==
LOC: C.LAB1850 16:19
PROVIDERS: ATTEND Obstetrics & Gynecology
DX: O09.299 Supervision of pregnancy with other poor reproductive or obstetric history, unspecified trimester (principal); Z3A.00 Weeks of gestation of pregnancy not specified

== ENCOUNTER → 2017-04-28 | Outpatient (CLI) | payer OTHER | END | disposition home or self-care (01) | LOC: C.LABPBG 15:25 | PROVIDERS: ATTEND Obstetrics & Gynecology | DX: O09.299 Supervision of pregnancy with other poor reproductive or obstetric history, unspecified trimester (principal); Z3A.00 Weeks of gestation of pregnancy not specified ==

== ENCOUNTER → 2017-05-20 | Outpatient (CLI) | payer OTHER ==
[2017-05-20 16:28] LABS: URINE APPEARANCE CLEAR (CLEAR); URINE BILIRUBIN NEG (NEG); URINE COLOR YELLOW; URINE NITRITE NEG (NEG); URINE SPECIFIC GRAVITY 1.015 (1.000-1.030); UROBILINOGEN NEG (NEG)
[2017-05-20 16:37] LABS: MANUAL MICROSCOPIC REQUIRED? NO; REVIEW REQ? NO
[2017-05-20 16:42] LABS: BASO % 0.3 %; BASO ABS # 0.03 K/uL (0-0.2); COMPLETE YES; EOS % 0.8 %; HEMATOCRIT 35.1 % (37-47); IG% 0.2 %; LYMPH % 30.6 %; LYMPH ABS # 2.71 K/uL (1.2-3.4); MEAN CELL VOLUME 92.4 fL (80-100); MEAN CORPUSCULAR HEMOGLOBIN 31.3 pg (25-34); MEAN CORPUSCULAR HGB CONC 33.9 g/dl (32-36); MEAN PLATELET VOLUME 9.4 fL (7.4-10.4); MONO % 6.2 %; NEUT % 61.9 %; PLATELET COUNT 232 K/uL (130-400); WHITE BLOOD COUNT 8.86 K/uL (4.8-10.8)
[2017-05-23 01:27] LABS: CHLAMYDIA TRACH RNA*** NOT DETECTED (NOT DETECTED); GC (NEIS GONORRHOEAE)RNA** NOT DETECTED (NOT DETECTED)
== END | disposition home or self-care (01) ==
LOC: C.LAB1850 15:27
PROVIDERS: ATTEND Obstetrics & Gynecology
DX: O09.291 Supervision of pregnancy with other poor reproductive or obstetric history, first trimester (principal)

== ENCOUNTER 2017-06-19 14:14 | Emergency (ER) | payer OTHER ==
[~2017-06-19] VITALS: Ht 162.6 cm; Wt 73.4 kg
[2017-06-19 14:20] VITALS: TEMP 36.8; Ht 162.6 cm; Wt 73.4 kg
[2017-06-19] MEDS ORDERED: ONDANSETRON INJ 2 MG/ML 2 ML VIAL IV PRN (15:15)
[2017-06-19] MEDS ORDERED: FLUT0.15 NAE (15:23)
[2017-06-19] MEDS ORDERED: HYDR-5688 PO (15:23)
[2017-06-19] MEDS ORDERED: PROM12.57 PO (15:23)
[2017-06-19] MEDS ORDERED: PRENTAB26 PO (15:23)
[2017-06-19] MEDS ORDERED: SERT50TA PO (15:23)
--- NOTE | 2017-06-19 15:23 | EMERGENCY ROOM VISIT NOTE ---
History First contact with patient: 14:45 Chief Complaint: NECK PAIN Stated Complaint: SEVERE NECK PAIN History of Present Illness The patient is a 31 year old female who presents to the Emergency Room with complaints of severe neck pain since yesterday. The patient was getting out of the shower when she had her head bent down by her knees. Then she flipped her head back when she felt an intense pain and a pop in her neck. The patient has had severe pain since. She also describes a numbness and tingling down both of her arms into her fourth and fifth fingers bilaterally. She also feels like her arms are weak bilaterally. The patient has a history of a cervical fusion at C5-C6 in February of this year. The patient has tried hydrocodone for pain with minimal relief. The patient contacted her spine doctor in addition to her OB doctor (she is 12 weeks ). She was referred here for evaluation. Review of Systems 6 system review performed and negative unless noted in HPI or below Past Medical/Surgical History Medical Problems: (1) Cervical radicular pain (2) Cervical stenosis of spinal canal (3) Herniation of intervertebral disc of cervical region (4) Pelvic pain affecting in first trimester, antepartum Family History Diabetes mellitus Hypertension Social History Smoking Status: Never Smoker Alcohol Use: none Drug Use: none Marital Status: Housing Status: lives with family Occupation Status: employed Current/Historical Medications Scheduled Cyclobenzaprine Hcl (Flexeril), 10 MG PO TID Fluticasone Propionate (Nasal) (Flonase Allergy Relief), 1 SPRAY VANESSA PRN Metoprolol Succ (Toprol Xl) (Toprol-Xl), 1.5 TAB PO HS Multivit/Min/Iron/Fol Ac/Pren ( Vitamin), 1 TAB PO DAILY Ranitidine Hcl (Zantac), 150 MG PO PRN Sertraline (Zoloft), 50 MG PO DAILY Scheduled PRN Acetaminophen (Tylenol), 1,000 MG PO Q6 PRN for Pain Hydrocodone/Acetaminophen 5MG/325MG ([place] 5MG/325MG), 1-2 TABLET PO PRN PRN for Pain Oxycodone Ir (Roxicodone Ir), 1-2 TAB PO Q4H PRN for Pain Promethazine (Phenergan ), 12.5 MG PO Q4H PRN for Nausea Physical Exam Vital Signs Date Time Temp Pulse Resp B/P (MAP) Pulse Ox O2 Delivery O2 Flow Rate FiO2 06/19/17 18:50 68 18 121/76 98 Room Air 06/19/17 16:25 72 113/74 100 Room Air 06/19/17 14:20 36.8 86 18 122/77 99 Room Air Physical Exam VITALS: Vitals are noted on the nurse's note and reviewed by myself. Vital signs stable. GENERAL: 31-year-old female, in obvious discomfort,, SKIN: The skin was without rashes, erythema, edema, or bruising. HEAD: Normocephalic atraumatic. NECK: The patient has severe pain with any movement of the neck. She is reluctant to do flexion and extension. The patient is reluctant to turn her head left or right HEART: Regular rate and rhythm without murmurs gallops or rubs. LUNGS: Clear to auscultation bilaterally without wheezes, rales or rhonchi. No accessory muscle use. MUSCULOSKELETAL: Sensation in the upper extremities intact. Biceps and triceps strength 5/5 bilaterally. Radial pulse +2 bilaterally.. Strength 5/5 throughout. NEURO: Patient was alert and oriented to person place and time. Normal sensation to touch. No focal neurological deficits. Medical Decision & Procedures ER Provider Diagnostic Interpretation: MRI c spine without contrast IMPRESSION: 1. Operative changes consistent with an anterior fusion at C6-C7 as well as a partial suboccipital craniotomy. 2. Otherwise negative study. The above report was generated using voice recognition software. It may contain grammatical, syntax or spelling errors. Electronically signed by: Juan Marc M.D. 06/19/2017 6:49 PM Dictated Date/Time: 06/19/2017 6:46 PM Medications Administered Medications (Trade) Dose Ordered Sig/Kandace Route Start Time Stop Time Status Last Admin Dose Admin Morphine Sulfate (MoRPHine SULFATE INJ) 4 mg Q1H PRN IV 06/19/17 15:15 07/03/17 15:14 06/19/17 16:45 4 MG Ondansetron HCl (Zofran Inj) 4 mg Q2H PRN IV 06/19/17 15:15 07/19/17 15:14 06/19/17 15:40 4 MG Hydromorphone HCl (Dilaudid Inj) 1 mg ONE ONCE IV 06/19/17 19:15 06/19/17 19:16 DC 06/19/17 19:15 1 MG Cyclobenzaprine HCl (Flexeril Tab) 10 mg ONE STAT PO 06/19/17 19:31 06/19/17 19:33 DC 06/19/17 20:10 10 MG ED Course Patient was seen and examined Vital signs including blood pressure were reviewed medications list was verified with patient The patient was given morphine 4 mg IV and Zofran 4 mg IV Upon reevaluation, the patient was still complaining of severe pain. She was given an additional dose of morphine. The case was discussed with obstetrics, Dr. Henson. An MRI was performed and reviewed. The findings were discussed with the patient. I also discussed dispo options. The patient was given a dose of Dilaudid 1 mg IV. She was given a home pack of oxycodone I reviewed discharge instructions the patient. They voiced understanding and had no further questions. Medical Decision Differential diagnosis: Spine fracture, ligamentous injury, subluxation, spondylolisthesis, spondylosis, herniated disc, contusion, muscle spasm, vertebral artery dissection This patient is a 31-year-old female, 12 weeks , presents emergency department with severe neck pain after flexion and extension of the neck. She has a history of a cervical spine fusion at C5-C6. On exam, the patient was in significant pain. I was concerned about a new bulged disc. I thought that vertebral artery dissection was highly unlikely given the mechanism. She also does not have any neurologic symptoms. The case was discussed with obstetrics. She was medicated with narcotics. An MRI was performed. Postsurgical changes were noted. No other acute on the normality were found. We discussed treatment options. The patient is comfortable being discharged home with a trial of narcotics and Flexeril. This was discussed with OB. The patient was also urged to follow up with orthopedics. She will return to the emergency department with any worsening symptoms. Of note, heart tones confirmed, rate appropriate This chart was completed in part utilizing [employer] Speech Voice Recognition software. Attempts were made to minimize the grammatical errors, random word insertions, pronoun errors and incomplete sentences. Any formal questions or concerns about the content, text or information contained within the body of this dictation should be directly addressed to the provider for clarification. Medication Reconcilliation Current Medication List: was personally reviewed by me Blood Pressure Screening Patient's blood pressure: Normal blood pressure Consults Consulting Physician: Dr. Henson Impression Primary Impression: Cervical radicular pain Departure Information Dispostion Home / Self-Care Condition FAIR Prescriptions Oxycodone Ir (Roxicodone Ir) 5 Mg Tab 1-2 TAB PO Q4H Y for Pain, #24 TAB For Initial Treatment Prov: Joceline Collado PA-C 06/19/17 Cyclobenzaprine Hcl (FLEXERIL) 10 Mg Tab 10 MG PO TID for Muscle Spasms, #30 TAB Prov: Joceline Collado PA-C 06/19/17 Referrals Jamie Gamino M.D. (PCP) Will Muir D.Tony. Janki Henson D.O. Patient Instructions [facility] Additional Instructions You were evaluated in the emergency department for neck pain. No acute abnormalities were noted on the MRI. Oxycodone Immediate Release (OxyIR) 5mg: Take 1-2 pills every four hours for pain. Avoid alcohol, operating machinery or dangerous equipment, working on ladders or roofs, DRIVING, or situations where being under the influence may be dangerous. It is recommended to use an [id number] stool softener such as Colace, 100mg twice daily while taking this medication to avoid constipation. Flexeril every 8 hours as needed for muscle spasm/pain. Please also do not drink alcohol or drive while taking this medication. You may also take Tylenol. 1000 mg every 8 hours as needed. Do not exceed 3000 mg in a 24 hr period Please follow-up with your obstetrician/gynecologist. Please also follow up with Dr. Muir. Call Thursday morning for a follow-up appointment Please return to the emergency department with any new or worsening symptoms.
[2017-06-19] MEDS: MoRPHine SULFATE 4 MG/ML 1 ML CARP\\VIAL IV PRN ×2 (15:40→16:45)
[2017-06-19 18:50] VITALS: BP 121/76
--- NOTE | 2017-06-19 18:51 | DIAGNOSTIC IMAGING REPORT ---
CERVICAL WITHOUT CONTRAST HISTORY: Pain. Neuropathy. severe neck pain numbness in 4-5 finger bilaterally TECHNIQUE: Multiplanar multisequence MRI of the cervical spine was performed without the use of contrast. COMPARISON STUDY: None FINDINGS: Findings consistent anterior fusion at C6-C7. Signal characteristics of the vertebral bodies as well as remaining intervertebral this are unremarkable. Signal characteristics of the cervical cord are considered unremarkable. There are findings of at least a partial suboccipital craniotomy. C2-C3: No significant central canal or neural foraminal narrowing. C3-C4: No significant central canal or neural foraminal narrowing. C4-C5: No significant central canal or neural foraminal narrowing. C5-C6: No significant central canal or neural foraminal narrowing. C6-C7: No significant central canal or neural foraminal narrowing. C7-T1: No significant central canal or neural foraminal narrowing. IMPRESSION: 1. Operative changes consistent with an anterior fusion at C6-C7 as well as a partial suboccipital craniotomy. 2. Otherwise negative study. The above report was generated using voice recognition software. It may contain grammatical, syntax or spelling errors. Electronically signed by: Juan Marc M.D. 06/19/2017 6:49 PM Dictated Date/Time: 06/19/2017 6:46 PM
[2017-06-19] MEDS ORDERED: HYDROmorphone INJ 1 MG/ML SYR IV ONE ×2 (19:15→20:30)
[2017-06-19] MEDS ORDERED: CYCLOBENZAPRINE HCL 5 MG TAB PO STA (19:31)
[2017-06-19] MEDS ORDERED: OXYC1TAB3 PO (19:40)
[2017-06-19] MEDS ORDERED: CYCL10TA6 PO (19:40)
[2017-06-19] MEDS ORDERED: OXYCODONE IR HOME PACK PO ONE (19:45)
--- NOTE | 2017-06-19 21:02 | DIAGNOSTIC IMAGING REPORT ---
LIMITED (US) CLINICAL HISTORY: please confirm heart rate TECHNIQUE: Ultrasound COMPARISON STUDY: None FINDINGS: Single, viable intrauterine . Anterior placenta. heart rate 145 bpm. Right ovary measures 3.1 cm maximum. This contains a 1.6 cm cyst. Left ovary measures 2.4 cm. IMPRESSION: 1. Single, viable intrauterine . 2. heart rate 145 bpm. 3. 1.6 cm right ovarian cyst The above report was generated using voice recognition software. It may contain grammatical, syntax or spelling errors. Electronically signed by: Juan Marc M.D. 06/19/2017 9:00 PM Dictated Date/Time: 06/19/2017 8:58 PM
[2017-06-19 21:47] VITALS: PULSE 65; O2SAT 99
== END 2017-06-19 21:47 | disposition home or self-care (01) ==
LOC: C.EDB 14:15 → C.EDD 21:47
DX: O26.92 Pregnancy related conditions, unspecified, second trimester (principal); M54.12 Radiculopathy, cervical region; M50.20 Other cervical disc displacement, unspecified cervical region; Z79.899 Other long term (current) drug therapy; Z83.3 Family history of diabetes mellitus; Z82.49 Family history of ischemic heart disease and other diseases of the circulatory system

== ENCOUNTER → 2017-07-15 | Outpatient (CLI) | payer OTHER ==
[~2017-07-15] MED LIST changes: +FLUT0.15 NAE; +OXYC1TAB3 PO; +PRENTAB26 PO; +PROM12.57 PO; +SERT50TA PO; -TIZA4CAP PO; -ULT50X PO
[2017-07-15 18:31] LABS: GTGD 50 Grams
== END | disposition home or self-care (01) ==
LOC: C.LAB1850 16:56
PROVIDERS: ATTEND Obstetrics & Gynecology
DX: Z34.81 Encounter for supervision of other normal pregnancy, first trimester (principal)

== ENCOUNTER → 2017-08-20 | Outpatient (CLI) | payer OTHER ==
[2017-08-20 15:34] LABS: BASO % 0.2 %; BASO ABS # 0.02 K/uL (0-0.2); EOS % 0.6 %; HEMATOCRIT 31.6 % (37-47); IG% 0.2 %; LYMPH % 21.2 %; LYMPH ABS # 2.42 K/uL (1.2-3.4); MEAN CELL VOLUME 94.3 fL (80-100); MEAN CORPUSCULAR HEMOGLOBIN 31.9 pg (25-34); MONO % 4.4 %; NEUT % 73.4 %; PLATELET COUNT 225 K/uL (130-400); RED BLOOD COUNT 3.35 M/uL (4.2-5.4); WHITE BLOOD COUNT 11.43 K/uL (4.8-10.8)
[2017-08-20 15:41] LABS: COMPLETE YES; MEAN CORPUSCULAR HGB CONC 33.9 g/dl (32-36)
[2017-08-20 17:57] LABS: URINE APPEARANCE CLEAR (CLEAR); URINE BILIRUBIN NEG (NEG); URINE COLOR YELLOW; URINE NITRITE NEG (NEG); URINE PH 6.5 (4.5-7.5); URINE SPECIFIC GRAVITY 1.013 (1.000-1.030); UROBILINOGEN NEG (NEG)
[2017-08-20 17:59] LABS: MANUAL MICROSCOPIC REQUIRED? NO; REVIEW REQ? NO
== END | disposition home or self-care (01) ==
LOC: C.LAB1850 15:03
PROVIDERS: ATTEND Obstetrics & Gynecology
DX: O26.899 Other specified pregnancy related conditions, unspecified trimester (principal); Z3A.00 Weeks of gestation of pregnancy not specified

== ENCOUNTER → 2017-10-05 | Outpatient (CLI) | payer OTHER | END | disposition home or self-care (01) | LOC: C.LABSPEC 18:01 | PROVIDERS: ATTEND Obstetrics & Gynecology | DX: Z34.83 Encounter for supervision of other normal pregnancy, third trimester (principal) ==

== ENCOUNTER → 2017-10-05 | Outpatient (CLI) | payer OTHER ==
[2017-10-05 18:12] LABS: HEMATOCRIT 31.9 % (37-47); HEMOGLOBIN 10.9 g/dL (12.0-16.0)
== END | disposition home or self-care (01) ==
LOC: C.LAB1850 17:35
PROVIDERS: ATTEND Obstetrics & Gynecology
DX: Z34.83 Encounter for supervision of other normal pregnancy, third trimester (principal)

== ENCOUNTER 2017-11-24 22:03 | Observation (INO) | payer OTHER ==
[~2017-11-24] VITALS: Ht 162.6 cm; Wt 85.3 kg
[~2017-11-24 22:03] MED LIST changes: -ACET-1256 PO; -FLUT0.15 NAE; -HYDR-5688 PO; +ONDA4TAB65 PO; -OXYC1TAB3 PO; -PROM12.57 PO
[2017-11-24] MEDS ORDERED: LACTATED RINGER'S 1000ML 1,000 ML IV SCH (22:39)
[2017-11-24] MEDS ORDERED: LACTATED RINGER'S 1000ML 500 ML IV ONE (22:39)
[2017-11-24] MEDS ORDERED: ONDANSETRON INJ 2 MG/ML 2 ML VIAL IV PRN (22:45)
[2017-11-24] MEDS ORDERED: TRMCR515 TOP (23:14)
[2017-11-24 23:15] LABS: BASO % 0.1 %; BASO ABS # 0.01 K/uL (0-0.2); EOS % 1.2 %; EOS ABS # 0.15 K/uL (0-0.5); HEMATOCRIT 30.5 % (37-47); HEMOGLOBIN 10.3 g/dL (12.0-16.0); IG# 0.04 K/uL (0.00-0.02); LYMPH % 26.1 %; LYMPH ABS # 3.31 K/uL (1.2-3.4); MEAN CELL VOLUME 92.1 fL (80-100); MEAN CORPUSCULAR HEMOGLOBIN 31.1 pg (25-34); MEAN CORPUSCULAR HGB CONC 33.8 g/dl (32-36); MONO % 5.1 %; MONO ABS # 0.65 K/uL (0.11-0.59); NEUT % 67.2 %; NEUT ABS # 8.52 K/uL (1.4-6.5); PLATELET COUNT 202 K/uL (130-400); RED CELL DISTRIBUTION WIDTH CV 13.1 % (11.5-14.5); RED CELL DISTRIBUTION WIDTH SD 43.9 fL (36.4-46.3); WHITE BLOOD COUNT 12.68 K/uL (4.8-10.8)
[2017-11-24 23:16] VITALS: Ht 162.6 cm; Wt 85.3 kg
[2017-11-25] MEDS ORDERED: PROMETHAZINE HCL INJ 25 MG/ML 1 ML VIAL IM STA (00:38)
[2017-11-25] MEDS ORDERED: MoRPHine SULFATE 10 MG/ML CARP/VIAL IM STA (00:38)
[2017-11-25] MEDS ORDERED: IV FLUIDS COMPLETED PRN (06:15)
== END 2017-11-25 06:10 | disposition home or self-care (01) ==
LOC: C.OPB 22:03 → C.LD 22:03 → C.OPB 11-25 01:29
PROVIDERS: ADMIT Obstetrics & Gynecology; ATTEND Obstetrics & Gynecology
DX: O60.03 Preterm labor without delivery, third trimester (principal); Z3A.34 34 weeks gestation of pregnancy

== ENCOUNTER 2017-12-04 11:44 | Outpatient (CLI) | payer OTHER ==
[~2017-12-04] VITALS: Ht 165.1 cm; Wt 85.5 kg
[~2017-12-04 11:44] MED LIST changes: +TRMCR515 TOP
[2017-12-04 16:20] VITALS: Ht 165.1 cm; Wt 85.5 kg
--- NOTE | 2017-12-04 16:31 | Progress Note ---
Progress Note Date of Service Dec 04, 2017. Progress Note Met with Ms. Barbour and her today while she was being evaluated on the OB floor. 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 During the of her first child, the patient had a for failure to progress under epidural anesthesia. The patient is very concerned about any kind of repeat neuraxial anesthesia after her prior experience. since she is concerned that her Chairi malformation developed because of her epidural. The patient has been cleared by her neurologist as safe to receive neuraxial anesthesia, but she and her are considering requesting a general anesthesia for her impending delivery. I spent about 1 hour discussing anesthetic options for repeat , including epidural, spinal and GA. We discussed the pros and cons of each method, including a detailed review of associated anesthetic risks. The patient and her asked in depth and appropriate questions about each option. I explained to the patient that the final decision will be up to her and her , but that if GA is chosen the consent form will specify that spinal would be our first recommendation due to associated risks with GA during . I provided the patient with my contact information and encouraged her to call me with any questions or concerns. The patient has not made a final decision, but will continue to consider her options over the next few weeks. Argenis Darby MD, PhD Anesthesiology
== END 2017-12-04 16:33 | disposition home or self-care (01) ==
LOC: C.OPB 11:44 → C.LD 11:45 → C.OPB 16:33
PROVIDERS: ATTEND Obstetrics & Gynecology
DX: O99.350 Diseases of the nervous system complicating pregnancy, unspecified trimester (principal); G93.5 Compression of brain; Z3A.00 Weeks of gestation of pregnancy not specified

== ENCOUNTER 2017-12-06 11:09 | Outpatient (CLI) | payer OTHER | END 2017-12-06 14:45 | disposition home or self-care (01) | LOC: C.OPB 11:09 → C.LD 11:10 → C.OPB 14:45 | PROVIDERS: ATTEND Obstetrics & Gynecology | DX: O26.893 Other specified pregnancy related conditions, third trimester (principal); R10.9 Unspecified abdominal pain; O99.350 Diseases of the nervous system complicating pregnancy, unspecified trimester; G93.5 Compression of brain; Z3A.36 36 weeks gestation of pregnancy ==

== ENCOUNTER → 2017-12-09 | Outpatient (CLI) | payer OTHER | END | disposition home or self-care (01) | LOC: C.LABSPEC 17:16 | PROVIDERS: ATTEND Obstetrics & Gynecology | DX: Z34.83 Encounter for supervision of other normal pregnancy, third trimester (principal) ==

== ENCOUNTER 2017-12-24 05:10 | Inpatient (IN) | payer OTHER ==
[2017-12-23 15:34] LABS: BASO % 0.3 %; BASO ABS # 0.03 K/uL (0-0.2); EOS % 0.5 %; EOS ABS # 0.06 K/uL (0-0.5); HEMATOCRIT 34.9 % (37-47); HEMOGLOBIN 11.8 g/dL (12.0-16.0); IG# 0.04 K/uL (0.00-0.02); LYMPH % 19.7 %; LYMPH ABS # 2.25 K/uL (1.2-3.4); MEAN CELL VOLUME 90.2 fL (80-100); MEAN CORPUSCULAR HEMOGLOBIN 30.5 pg (25-34); MEAN CORPUSCULAR HGB CONC 33.8 g/dl (32-36); MEAN PLATELET VOLUME 9.4 fL (7.4-10.4); MONO % 6.1 %; NEUT ABS # 8.34 K/uL (1.4-6.5); PLATELET COUNT 220 K/uL (130-400); RED CELL DISTRIBUTION WIDTH CV 13.7 % (11.5-14.5); WHITE BLOOD COUNT 11.42 K/uL (4.8-10.8)
--- NOTE | 2017-12-23 16:22 | HISTORY & PHYSICAL EXAMINATION ---
DATE OF ADMISSION: 12/23/2017 CHIEF COMPLAINT: Planned section. HISTORY OF PRESENT ILLNESS: A 32-year-old 4, para 1-0-2-1, at 39-0/7 weeks on the day of her admission for planned section. The patient has a prior history of section in 2013 for failure to descend. She has elected to have a repeat section. She declines a . She unfortunately has had a history of an Arnold-Chiari malformation with a decompression procedure for which she is concerned about regional anesthesia. She has seen Anesthesia regarding this. There is a possible plan to perform regional anesthesia versus elect general anesthesia. Apparently, she is still debating such. She does have a history of genital herpes for which she has been taking Valtrex with no outbreaks. She declines tubal sterilization at the time of the . Today, she denies any contractions, vaginal bleeding or leaking. She reports good movement. She is anxious about the upcoming procedure. OBSTETRIC HISTORY: x1 in 2013, SAb x2. LABORATORY DATA: Rh positive, rubella immune, GBS negative. GYNECOLOGIC HISTORY: No history of abnormal Pap smears, no STDs. PAST MEDICAL HISTORY: History of kidney stones, depression, on Zoloft currently, gluten sensitivity, LATEX ALLERGY, Chiari malformation. PAST SURGICAL HISTORY: [place] tooth extraction, , tonsillectomy, kidney stone surgery, fibroid surgery, abdominal adhesions, brain decompression, cervical fusion in 2017. SOCIAL HISTORY: No tobacco, alcohol, or street drug use. FAMILY HISTORY: No congenital anomalies or mental retardation. REVIEW OF SYSTEMS: 10 systems within the chart and negative except for elevated cholesterol, supraventricular tachycardia, history of sleep apnea, shortness of breath with exertion now that she has been , anxiety, history of anemia, Arnold's thyroiditis in the past, GERD, TMJ; spine, neck, and back problems; kidney stone history, skin cancer history. PHYSICAL EXAMINATION: VITAL SIGNS: Height 5 feet 5 inches, weight 185 pounds. Blood pressure 90/60. GENERAL: She is a pleasant female, well developed, well nourished, in no acute distress. HEART: Regular rate and rhythm. LUNGS: Clear to auscultation bilaterally. ABDOMEN: Soft, gravid, and nontender. Fundal height is 36 cm. heart tone is 145 beats per minute. EXTREMITIES: No edema. ASSESSMENT: 1. A 39-0/7 weeks estimated gestational age on the day of her admission. 2. Prior section, desires repeat section. 3. History of Arnold-Chiari malformation with decompression, may undergo general versus regional anesthesia. PLAN: The patient will be admitted tomorrow for planned procedure. She is still unsure about her plans for anesthesia management for the and has met with anesthesia prior to this and apparently is a candidate for epidural anesthesia. I discussed with her the benefits of regional anesthesia over general anesthesia from the standpoint of benefits to the baby as well as decreased blood loss. She signed the consent form for today. Risks, alternatives, and complications were reviewed with her to include but not limited to bleeding, infection, injury to maternal and structures. The patient will undergo lab testing today. She will present tomorrow for planned section. She is aware of her preop and postop instructions and course.
[~2017-12-24] VITALS: Ht 165.1 cm; Wt 86.4 kg
[~2017-12-24 05:10] MED LIST changes: +DIPH25CA65 PO
[2017-12-24] MEDS ORDERED: LACTATED RINGER'S 1000ML 1,000 ML IV SCH ×4 (05:16→18:00)
[2017-12-24] MEDS ORDERED: CITRIC ACID/SODIUM CITRATE 15 ML UDC PO SCH (06:00)
[2017-12-24 06:01] LABS: BASO % 0.3 %; BASO ABS # 0.03 K/uL (0-0.2); EOS % 0.8 %; EOS ABS # 0.09 K/uL (0-0.5); HEMATOCRIT 32.4 % (37-47); HEMOGLOBIN 11.2 g/dL (12.0-16.0); IG# 0.02 K/uL (0.00-0.02); LYMPH % 25.8 %; LYMPH ABS # 2.99 K/uL (1.2-3.4); MEAN CORPUSCULAR HEMOGLOBIN 31.1 pg (25-34); MEAN CORPUSCULAR HGB CONC 34.6 g/dl (32-36); MONO % 6.1 %; MONO ABS # 0.71 K/uL (0.11-0.59); NEUT % 66.8 %; NEUT ABS # 7.77 K/uL (1.4-6.5); PLATELET COUNT 206 K/uL (130-400); RED CELL DISTRIBUTION WIDTH CV 13.7 % (11.5-14.5); RED CELL DISTRIBUTION WIDTH SD 44.8 fL (36.4-46.3); WHITE BLOOD COUNT 11.61 K/uL (4.8-10.8)
[2017-12-24 06:35] VITALS: Ht 165.1 cm; Wt 86.4 kg
[2017-12-24] MEDS ORDERED: CEFAZOLIN IV 2,000 MG in SYRINGE 0 ML IV SCH (07:30)
[2017-12-24] MEDS ORDERED: BUPIVACAINE 0.5 % 5 MG/1 ML PF 10ML VIAL ONE (08:17)
[2017-12-24] MEDS ORDERED: MIDAZOLAM HCL 1 MG/ML 2ML VIAL ONE (08:38)
[2017-12-24] MEDS ORDERED: HYDROmorphone INJ 2 MG/ML SYR/VIAL ONE (08:39)
[2017-12-24] MEDS ORDERED: DEXAMETHASONE SOD INJ 4 MG/ML VIAL ONE (09:01)
[2017-12-24] MEDS ORDERED: PHENYLEPHRINE HCL INJ 10 MG/ML VIAL ONE ×2 (09:01→09:16)
[2017-12-24] MEDS ORDERED: SUCCINYLCHOLINE CHLORIDE 20 MG/ML 10 ML VIAL IV ONE (09:01)
[2017-12-24] MEDS ORDERED: ONDANSETRON INJ 2 MG/ML 2 ML VIAL ONE (09:01)
[2017-12-24] MEDS ORDERED: PROPOFOL IV EMULSION 10 MG/ML 20 ML VIAL ONE (09:01)
[2017-12-24] MEDS ORDERED: LIDOCAINE HCL 2% MPF 5 ML VIAL (20MG/ML) ONE (09:01)
[2017-12-24] MEDS ORDERED: OXYTOCIN INJ 10 UNITS/ML VIAL ONE (09:10)
--- NOTE | 2017-12-24 09:17 | [facility] Post Operative Brief Note ---
Immediate Operative Summary Operative Date December 24, 2017. Pre-Operative Diagnosis Previous Caesarean Section x 1; Patient Desires Repeat Caesarean Section. Post-Operative Diagnosis Same as Pre-op Procedure(s) Performed Live Male Infant at 0837 via Repeat Low Transverse Section Surgeon Dr. Gupta [employer] Attendant Surgeon(s) Dr. Rodriguez Estimated Blood Loss 750 ml Findings See Below see below Fluids (cc crystalloids) 1000 Specimens Placenta (Hold) Cord Blood Drains greene Anesthesia Type General Complication(s) none Disposition Accompanied Pt To Recover: no Disposition: L&D (viable male, apgars 8,9. normal uterus tubes and ovaries bilaterally. )
[2017-12-24] MEDS ORDERED: SODIUM CHLORIDE 0.9% 1000ML 1,000 ML IV SCH ×2 (09:25→18:07)
[2017-12-24] MEDS ORDERED: ONDANSETRON INJ 2 MG/ML 2 ML VIAL IV PRN ×2 (09:30→10:45)
[2017-12-24] MEDS ORDERED: LANOLIN OINT EXT PRN (09:30)
[2017-12-24] MEDS ORDERED: SUPERCREAM 0.870 % 15GM JAR EXT PRN (09:30)
[2017-12-24] MEDS ORDERED: BENZOCAINE 20% AER SPR 82.5 GM CAN EXT PRN (09:30)
[2017-12-24] MEDS ORDERED: DIPHTHERIA/TETANUS/PERTUSSIS 0.5 ML SYR/VIAL IM. ONE (09:30)
[2017-12-24] MEDS ORDERED: ZOLPIDEM TARTRATE 5 MG TAB PO PRN (09:30)
[2017-12-24] MEDS ORDERED: HYDROCORTISONE ACETATE 25 MG SUPP PR PRN (09:30)
[2017-12-24] MEDS ORDERED: NALOXONE HCL 0.4 MG/1 ML VIAL/CARP IV PRN ×2 (09:30→18:15)
--- NOTE | 2017-12-24 09:59 | OPERATIVE REPORT ---
DATE OF OPERATION: 12/24/2017 PREOPERATIVE DIAGNOSES: 1. 39-week intrauterine . 2. Prior section, desires repeat section. 3. Declines vaginal after . POSTOPERATIVE DIAGNOSES: 1. 39-week intrauterine . 2. Prior section, desires repeat section. 3. Declines vaginal after . PROCEDURE: Repeat low transverse section. SURGEON: Dr. Orquidea Gupta DEVELOPMENT WRITER: Dr. Rodriguez ANESTHESIA: General. IV FLUIDS: 1000 mL. ESTIMATED BLOOD LOSS: 750 mL. FINDINGS: Viable male , Apgars 8 and 9. Normal uterus, tubes, and ovaries bilaterally. INDICATIONS: This is a 32-year-old 4, para 1-0-2-1 at 39 weeks estimated gestational age who presented today for her planned repeat section as she declined . She has a history of an Arnold-Chiari malformation with a brain decompression and was reluctant to undergo regional anesthesia. She was counseled by anesthesia extensively. She has severe anxiety. She opted to proceed with general anesthesia. DESCRIPTION OF PROCEDURE: The patient was taken to the operating room and identified. She was placed in the supine position with a leftward tilt and prepped and draped in the usual sterile fashion. A Amaro catheter had already been placed under sterile conditions. At this point anesthesia proceeded with induction of general anesthesia. The knife was then used to create a Pfannenstiel skin incision that was carried down to the underlying layer of fascia. The fascia was nicked in the midline and this opening was extended using Kaiser scissors. Kim clamps were placed in the superior aspect of the fascial incision and it was bluntly dissected away from the underlying rectus muscles. The peritoneal cavity was bluntly entered into. This opening was stretched. A bladder blade was placed. The vesicouterine peritoneum was grasped with a Kristine clamp and elevated. It was opened up into sharply using Metzenbaum scissors and extended laterally bluntly to create the bladder flap. The bladder blade was replaced. The knife was used to create a hysterotomy that was then stretched. The amniotic sac was ruptured for clear fluid. The planimeter operator's hand was placed through the hysterotomy and the head was elevated. The bladder blade was removed. With fundal pressure, the cephalic was delivered. The nuchal cord that was loose x1 was reduced and the remainder of the shoulders and body were delivered. The was crying at . The nose and mouth were bulb suctioned. The cord was clamped and cut and the was handed off to the awaiting facilitator. Cord blood was obtained. The placenta was manually expressed. The uterus was exteriorized and cleared of all clots and debris. The hysterotomy was closed in a running locking fashion using 0 Vicryl followed by a second imbricating layer of 0 Vicryl. Hemostasis was inadequate at the right hysterotomy and left hysterotomy where [id number] sutures of 0 Vicryl were placed for excellent hemostasis. The pelvis was irrigated. The gutters were cleared of all clots and debris after the uterus was returned to the abdomen. The hysterotomy was reinspected and noted to be hemostatic. The fascia was then closed in a running fashion using 0 Vicryl. The subcutaneous fat was copiously irrigated. It was reapproximated using 2-0 chromic and the skin was then closed in a subcuticular fashion using 4-0 Vicryl. The section portion of the procedure was then terminated. There was a plan by anesthesia to place nerve blocks for the patient's postop pain control. The patient returned to the recovery room in stable condition. All sponge, lap, and needle counts were correct x2. I attest to the content of the Intraoperative Record and any orders documented therein. Any exceptions are noted below. STANISLAV
[2017-12-24] MEDS ORDERED: FENTANYL CITRATE INJ 50 MCG/1 ML 2 ML VIAL ONE ×2 (10:06→10:15)
[2017-12-24] MEDS ORDERED: KETOROLAC TROMETHAMINE 30 MG/ML VIAL ONE (10:15)
[2017-12-24] MEDS ORDERED: HYDROmorphone INJ 2 MG/ML SYR/VIAL IV PRN (10:45)
[2017-12-24] MEDS ORDERED: ACETAMINOPHEN 1000 MG/100 ML IV IV PRN (10:45)
[2017-12-24] MEDS ORDERED: EpHEDrine SULFATE INJ 50 MG/ML AMP IV PRN ×2 (10:45)
[2017-12-24] MEDS ORDERED: ATROPINE SULFATE 0.1 MG/ML 5ML SYR IV PRN ×2 (10:45)
[2017-12-24] MEDS ORDERED: FENTANYL CITRATE INJ 50 MCG/1 ML 2 ML VIAL IV PRN (10:45)
[2017-12-24] MEDS ORDERED: PROMETHAZINE HCL INJ 12.5 MG in SODIUM CHLORIDE 0.9% 50ML 50 ML IV PRN (10:45)
[2017-12-24] MEDS: DiphenhydrAMINE HCL 50 MG/ML VIAL IV PRN ×2 (10:49→18:18)
--- NOTE | 2017-12-24 10:57 | Anesthesiology Progress Note ---
Anesthesia Post Op Note Date & Time December 24, 2017 at 10:56 Notes Mental Status: alert / awake / arousable, participated in evaluation Pt Amnestic to Procedure: Yes Nausea / Vomiting: adequately controlled Pain: adequately controlled Airway Patency, RR, SpO2: stable & adequate BP & HR: stable & adequate Hydration State: stable & adequate Anesthetic Complications: no major complications apparent
[2017-12-24] MEDS: MoRPHine SULFATE 1 MG/ML 50 ML PCA CASS IV PRN ×3 (11:18→20:08)
[2017-12-24] MEDS: OXYTOCIN INJ 20 UNITS in LACTATED RINGER'S 1000ML 1,000 ML IV SCH ×2 (11:23→19:39)
[2017-12-24 12:45] VITALS: BP 107/69; PULSE 86; TEMP 36.9; O2SAT 96
[2017-12-24] MEDS: SIMETHICONE 80 MG CHEW PO SCH ×3 (12:52→20:33)
[2017-12-24 14:19] VITALS: O2SAT 96
[2017-12-24] MEDS: KETOROLAC TROMETHAMINE 30 MG/ML VIAL IV. PRN ×2 (15:46→22:50)
[2017-12-24 15:50] VITALS: BP 109/69; PULSE 96; TEMP 36.3; O2SAT 97
[2017-12-24] MEDS: HYDROmorphone HCL 0.5MG/ML 50 ML CASSETTE IV PRN ×2 (20:09→23:29)
[2017-12-24] MEDS: SERTRALINE HCL 50 MG TAB PO SCH (20:33)
[2017-12-24] MEDS: DOCUSATE SODIUM 100 MG CAP PO SCH (20:33)
[2017-12-24 20:45] VITALS: BP 102/69; PULSE 86; TEMP 37; O2SAT 97
[2017-12-24] MEDS: METOPROLOL SUCC 25MG EXT REL TAB PO SCH (23:23)
[2017-12-24 23:45] VITALS: BP 105/67; PULSE 90; TEMP 37; O2SAT 98
[2017-12-25] MEDS: OXYTOCIN INJ 20 UNITS in LACTATED RINGER'S 1000ML 1,000 ML IV SCH (03:52)
[2017-12-25 05:00] VITALS: BP 96/58; PULSE 96; TEMP 36.4; O2SAT 96
[2017-12-25] MEDS: KETOROLAC TROMETHAMINE 30 MG/ML VIAL IV. PRN (05:25)
--- NOTE | 2017-12-25 05:30 | Progress Note ---
Subjective December 25, 2017. Subjective conversation w/ patient, physical exam Voiding: greene catheter in place Passing Gas: No Diet Tolerance: NPO Lochia: Small Feeding Type: Breast Feeding Pain: having headache right now, abdominal pain control ok Comment: pt was switched to dilaudid guard range yesterday. she notes headache and asks about eating. she has left calf point tenderness. Objective Vital Signs Date Time Temp Pulse Resp B/P (MAP) Pulse Ox O2 Delivery O2 Flow Rate FiO2 12/25/17 05:00 36.4 96 18 96/58 (71) 96 Room Air 12/24/17 23:45 37.0 90 18 105/67 (80) 98 Room Air 12/24/17 23:45 98 Room Air 12/24/17 20:45 37.0 86 20 102/69 (80) 97 Room Air 12/24/17 15:50 36.3 96 18 109/69 (82) 97 Room Air 12/24/17 15:50 97 Room Air 12/24/17 14:19 96 Room Air 12/24/17 12:45 96 Room Air 12/24/17 12:45 36.9 86 18 107/69 (82) 96 Room Air Physical Exam General Appearance: WELL-APPEARING, WD/WN, NO APPARENT DISTRESS Respiratory/Chest: lungs clear Cardiovascular: regular rate, rhythm Abdomen: non tender, soft, + abnormal bowel sounds (diminished), + distended Fundus: Firm, Relation to Umbilicus (1 down) Incision Description: Clean, Dry & Intact Extremities: no pedal edema, + calf tenderness (left side at calf no cord, no skin change, neg jasmeet's ) Laboratory Results Last 24 Hours Test 12/24/17 05:37 White Blood Count 11.61 K/uL Red Blood Count 3.60 M/uL Hemoglobin 11.2 g/dL Hematocrit 32.4 % Mean Corpuscular Volume 90.0 fL Mean Corpuscular Hemoglobin 31.1 pg Mean Corpuscular Hemoglobin Concent 34.6 g/dl Platelet Count 206 K/uL Mean Platelet Volume 9.0 fL Neutrophils (%) (Auto) 66.8 % Lymphocytes (%) (Auto) 25.8 % Monocytes (%) (Auto) 6.1 % Eosinophils (%) (Auto) 0.8 % Basophils (%) (Auto) 0.3 % Neutrophils # (Auto) 7.77 K/uL Lymphocytes # (Auto) 2.99 K/uL Monocytes # (Auto) 0.71 K/uL Eosinophils # (Auto) 0.09 K/uL Basophils # (Auto) 0.03 K/uL RDW Standard Deviation 44.8 fL RDW Coefficient of Variation 13.7 % Immature Granulocyte % (Auto) 0.2 % Immature Granulocyte # (Auto) 0.02 K/uL Assessment and Plan Problem List Medical Problems: (1) Cervical disc herniation Status: Acute (2) Thoracic back pain Status: Acute Post-, Post-Op Day#: 1 Continue Routine Care: stable, routine care. bs are diminished and she is distended. may have sips and crackers with po pain meds today but would hold off on more of a diet until moving and those findings improve. ramnoa will be out this am, await void. ambulate, po pain meds. pt notes her headache is "too bad" to tell me what po pain meds work for her normally. she will get toradol for her boateng now. as far as her point calf pain, no skin change or cord, neg jasmeet's. given pp need to be suspicious but for now will watch and pt aware and agreeable.
[2017-12-25] MEDS ORDERED: CEFAZOLIN 2000MG IV PUSH 15 ML IV SCH (06:00)
[2017-12-25 06:38] LABS: HEMATOCRIT 29.8 % (37-47); HEMOGLOBIN 9.8 g/dL (12.0-16.0); MEAN CELL VOLUME 91.7 fL (80-100); MEAN CORPUSCULAR HEMOGLOBIN 30.2 pg (25-34); MEAN CORPUSCULAR HGB CONC 32.9 g/dl (32-36); MEAN PLATELET VOLUME 8.7 fL (7.4-10.4); PLATELET COUNT 152 K/uL (130-400); RED CELL DISTRIBUTION WIDTH CV 13.8 % (11.5-14.5); RED CELL DISTRIBUTION WIDTH SD 45.7 fL (36.4-46.3); WHITE BLOOD COUNT 16.33 K/uL (4.8-10.8)
[2017-12-25] MEDS ORDERED: ACETAMINOPHEN 325 MG TAB PO PRN (06:45)
[2017-12-25 07:10] LABS: BASO % 0.1 %; BASO ABS # 0.01 K/uL (0-0.2); EOS % 0.6 %; EOS ABS # 0.09 K/uL (0-0.5); IG# 0.04 K/uL (0.00-0.02); LYMPH % 17.5 %; LYMPH ABS # 2.85 K/uL (1.2-3.4); MONO % 5.2 %; MONO ABS # 0.85 K/uL (0.11-0.59); NEUT % 76.4 %; NEUT ABS # 12.49 K/uL (1.4-6.5)
[2017-12-25] MEDS: RANITIDINE HCL 150 MG TAB PO SCH (08:00)
[2017-12-25] MEDS ORDERED: DC PCA SCH (08:00)
[2017-12-25] MEDS: SIMETHICONE 80 MG CHEW PO SCH ×4 (08:02→19:47)
[2017-12-25] MEDS: DOCUSATE SODIUM 100 MG CAP PO SCH ×2 (08:02→19:47)
[2017-12-25 08:10] VITALS: BP 100/64; PULSE 90; TEMP 37; O2SAT 93
[2017-12-25] MEDS: PROMETHAZINE HCL 25 MG TAB PO PRN ×4 (10:32→22:24)
[2017-12-25] MEDS: IBUPROFEN 600 MG TAB PO PRN ×4 (10:32→22:24)
[2017-12-25] MEDS: OXYCODONE/ACETAMINOPHEN 5-325 TAB PO PRN ×4 (10:32→22:24)
[2017-12-25 17:00] VITALS: BP 97/65; PULSE 90; TEMP 37.4; O2SAT 98
[2017-12-25] MEDS: SERTRALINE HCL 50 MG TAB PO SCH (20:51)
[2017-12-25] MEDS ORDERED: COUGH DROP (SUGAR FREE) LOZ 24 LOZ/1 BOX LOZ ONE (21:19)
[2017-12-25] MEDS: METOPROLOL SUCC 25MG EXT REL TAB PO SCH (22:25)
[2017-12-25 23:45] VITALS: BP 111/69; PULSE 85; TEMP 36.8
[2017-12-26] MEDS: IBUPROFEN 600 MG TAB PO PRN ×5 (02:28→21:01)
[2017-12-26] MEDS: OXYCODONE/ACETAMINOPHEN 5-325 TAB PO PRN ×5 (02:29→21:01)
[2017-12-26] MEDS: PROMETHAZINE HCL 25 MG TAB PO PRN ×3 (04:37→21:00)
[2017-12-26 06:18] LABS: HEMATOCRIT 26.6 % (37-47); HEMOGLOBIN 8.7 g/dL (12.0-16.0)
--- NOTE | 2017-12-26 06:36 | Progress Note ---
Subjective December 26, 2017. Subjective conversation w/ patient, physical exam Ambulation: ambulating normally Voiding: no voiding problems, greene catheter in place Passing Gas: Yes Diet Tolerance: Regular Diet Lochia: Moderate Feeding Type: Breast Feeding Pain: controlled Review of Systems Constitutional: No problem reported Respiratory: No problem reported Cardiac: No problem reported Breast: No problem reported Abdomen: No problem reported Female : No problem reported Objective Vital Signs Date Time Temp Pulse Resp B/P (MAP) Pulse Ox O2 Delivery O2 Flow Rate FiO2 12/25/17 23:45 36.8 85 18 111/69 (83) Room Air 12/25/17 23:45 Room Air 12/25/17 17:00 37.4 90 18 97/65 (76) 98 Room Air 12/25/17 17:00 98 Room Air 12/25/17 08:10 37.0 90 18 100/64 (76) 93 Room Air 12/25/17 08:10 93 Room Air Physical Exam General Appearance: WELL-APPEARING, NO APPARENT DISTRESS Respiratory/Chest: normal breath sounds Cardiovascular: regular rate, rhythm Abdomen: non tender, soft Fundus: Firm Incision Description: Clean, Dry & Intact Extremities: normal inspection Laboratory Results Last 24 Hours Test 12/26/17 06:09 Hemoglobin 8.7 g/dL Hematocrit 26.6 % Assessment and Plan Problem List Medical Problems: (1) Cervical disc herniation Status: Acute (2) Thoracic back pain Status: Acute Post-Op Day#: 2 Continue Routine Care: POD#2 doing well. Patient is thinking she'd like to go home today. Hgb 9.8 yesteray, 8.7 today. Vitals stable, asymptomatic. Had calf pain yesterday, this has resolved and not returned - patient thinks she had a leg cramp yesterday. Requesting rx for phenergan to make percocet more tolerable. [place]MP reviewed. Reviewed discharge instructions.
[2017-12-26] MEDS ORDERED: PROM25TA9 PO (06:39)
[2017-12-26] MEDS ORDERED: OXYC-57 PO (06:39)
--- NOTE | 2017-12-26 06:40 | Discharge Instructions ---
Discharge Instructions Date of Service December 26, 2017. Admission Reason for Admission: Previous Section Discharge Discharge Diagnosis / Problem: repeat Discharge Goals Goal(s): Routine recovery after surgery Activity Recommendations Activity Limitations: per Instructions/Follow-up section . Instructions / Follow-Up Instructions / Follow-Up ACTIVITY RECOMMENDATIONS: * Gradual return to full activity over the next 2-3 weeks. * No lifting - nothing heavier than baby over the next 2-3 weeks. * Do not engage in vigorous exercise, sexual activity or sports until cleared by your physician. * Do not drive or operate any motorized equipment until cleared by your physician. * You may shower/bathe daily. MEDICATIONS: For discomfort or pain, you may use Acetaminophen (Tylenol), Ibuprofen (Advil), or Naproxen (Aleve) following the package directions. For constipation you may use Colace following the package directions. BREAST CARE: If you are not breast feeding: * Wear a supportive bra 24 hours a day for one to two weeks. * Avoid stimulating your breasts and nipples as much as possible during the first few weeks after delivery. * When taking a shower, have the warm water hit your back, not breasts. * When your breasts feel full, apply ice packs. Usually three to four times a day helps ease the discomfort. * Take a mild pain medication (Tylenol / Motrin) when you are uncomfortable. If breast feeding: * Use breast milk to lubricate nipples. Lansinoh cream may be used for sore nipples. You do not need to remove cream prior to breast feeding. If using a different brand of cream, check the label for directions regarding removal of cream prior to nursing. * Wear a supportive bra. * If having problems with breasts or breast feeding, call a nursing education consultant or your health care provider. SPECIAL CARE INSTRUCTIONS: When you are discharged from the hospital, it is important for you to follow the instructions listed below: * During the first week at home, you should be able to care for yourself and your baby. In addition, the usual light household activities are encouraged. * Limit your activities to the way you feel. Do not try to clean the house or move furniture. Be sensible. * If you actively engage in sports and have done so up until the time of your delivery, you may resume these activities as soon as you feel able. This may take up to one month or even longer. Use good judgment. * Continue to take your vitamins for at least six weeks after the of your baby. * Your diet need not be limited unless you were on a special diet before your delivery. Breast-feeding mothers need around 2500 calories per day and at least 64-80 ounces of fluid per day (8 to 10 glasses). * You should eat foods from the four major food groups. Crash diets or fad diets are to be avoided. Eating lean meats, fresh fruits and vegetables, low-fat dairy products, high fiber foods and a regular exercise program, will help you get back to your pre- weight without putting your health at risk. * Constipation is sometimes a problem after delivery. Take a mild laxative as needed. If breast feeding, Milk of Magnesia is acceptable to use. You may use a suppository or Fleets enema. * A daily shower or tub bath is suggested. Wash incision daily with warm soapy water and pat dry. It doesn't need to be covered unless drainage is present. * A bloody vaginal discharge will usually continue until around four weeks . A small amount of bleeding may continue for as long as six weeks. Vaginal discharge changes from the bright red bleeding after delivery to pink then brownish and finally yellowish-pink before becoming white and disappearing. * Bleeding may increase with activity. Your first period may come in 4-8 weeks. If you are breast feeding, your period may be delayed even longer. * Ramos (sex) can begin whenever both you and your partner feel comfortable and do not have any form of genital infection. It is recommended that you wait at least six weeks for internal and external healing to occur. If you have questions, please talk to your health care practitioner. A condom should be used to prevent infection and . * Foreplay, gentle intercourse and lubrication is very important the first several times to prevent pain. A water-based lubricant such as K-Y jelly or Astroglide may be used. * If you have RH negative blood and your baby is RH positive, you will receive RHOGAM by injection prior to discharge. The nurse will give you a card to keep with you that has the date and place that you received RHOGAM after delivery. * During your care, you had a Rubella screen done to check for the presence of rubella antibodies in your blood. If your test was negative, you will receive a Rubella vaccine prior to discharge. This vaccine may cause a fever, soreness at the injection site and flu-like symptoms. If these symptoms persist, notify your health care practitioner. is not advised for one month after a Rubella vaccine. * Verbalizes understanding of car seat law as reviewed with patient nursing. * Car Seat hand-out given and reviewed with patient by nursing. * Shaken baby information reviewed with patient by nursing. Call you doctor if: * Heavy bleeding (saturating several pads an hour) or passing clots the size of your fist. * A fever >101 degrees F (38.3 degrees C) on two occasions four hours apart and /or chills. * Unusual pain in the pelvic or vaginal areas. * Call the doctor for any increased redness, drainage or swelling around the incision and any pain unrelieved by prescribed pain medication. * "Baby Blues" lasting longer than two weeks. If you have any questions or concerns, call your health care practitioner at . FOLLOW UP VISIT: * Please call the office at to schedule a 6 week examination. It is important you keep this appointment. It is important for you to make arrangements for either yearly or twice yearly check-ups thereafter. Current Hospital Diet Patient's current hospital diet: Regular OB Diet Discharge Diet Recommended Diet: Regular OB Diet Procedures Procedures Performed: Live Male at 0837 via Repeat Low Transverse Section Pending Studies Studies pending at discharge: no Medical Emergencies . Who to Call and When: Medical Emergencies: If at any time you feel your situation is an emergency, please call [phone] immediately. . Non-Emergent Contact Non-Emergency issues call your: Primary Care Provider, Nitroglycerin Neutralizer . . "Provider Documentation" section prepared by Janki Henson. .
[2017-12-26] MEDS: RANITIDINE HCL 150 MG TAB PO SCH (08:00)
[2017-12-26 08:30] VITALS: BP 107/72; PULSE 75; TEMP 36.5; O2SAT 99
[2017-12-26] MEDS: SIMETHICONE 80 MG CHEW PO SCH ×4 (08:53→19:57)
[2017-12-26] MEDS: DOCUSATE SODIUM 100 MG CAP PO SCH ×2 (08:53→19:57)
[2017-12-26] MEDS: SERTRALINE HCL 50 MG TAB PO SCH (21:00)
[2017-12-26] MEDS: METOPROLOL SUCC 25MG EXT REL TAB PO SCH (21:40)
[2017-12-26 23:20] VITALS: BP 109/73; PULSE 83; TEMP 36.7; O2SAT 98
[2017-12-27] MEDS: OXYCODONE/ACETAMINOPHEN 5-325 TAB PO PRN ×3 (01:18→12:13)
[2017-12-27] MEDS: IBUPROFEN 600 MG TAB PO PRN ×3 (01:20→12:12)
[2017-12-27 07:25] VITALS: BP 107/71; PULSE 66; TEMP 36.8
[2017-12-27] MEDS: RANITIDINE HCL 150 MG TAB PO SCH (07:34)
[2017-12-27] MEDS: SIMETHICONE 80 MG CHEW PO SCH ×2 (07:34→12:13)
[2017-12-27] MEDS: DOCUSATE SODIUM 100 MG CAP PO SCH (07:34)
[2017-12-27 13:49] VITALS: BP_DIAS 71; PULSE 66; TEMP 36.8
--- NOTE | 2017-12-28 08:50 | DISCHARGE SUMMARY ---
ADMISSION DIAGNOSES: 1. 39 week intrauterine . 2. Prior section, desired repeat section. 3. Declines vaginal after section. DISCHARGE DIAGNOSES: 1. 39 week intrauterine . 2. Prior section, desired repeat section. 3. Declines vaginal after section. PROCEDURE: Repeat low transverse section. BRIEF HISTORY AND HOSPITAL COURSE: This is a 32-year-old 4, para 1-0-2-1, at 39 weeks estimated gestational age who presented today for planned repeat . She declined . She has a history of an Arnold-Chiari malformation with a brain decompression and was reluctant to undergo regional anesthesia. She was counseled by anesthesia extensively and elected to undergo her planned section with general anesthesia. The above-stated procedure was performed without incident. The estimated blood loss was 750 mL. Her postop course and recovery was otherwise unremarkable. On her postop day number 2, she desired discharge to home. She was tolerating a regular diet, voiding spontaneously without difficulty, and ambulating without difficulty and was stable for discharge to home. She was given discharge instructions and they were reviewed with her. She also took a prescription for Phenergan along with her Percocet to make it more tolerable. Her postop hemoglobin was 8.7. She was given instructions to follow up in 6 weeks for checkup.
== END 2017-12-27 13:58 | disposition home or self-care (01) | DRG 765 ==
LOC: C.LD 05:10 → C.OBG 12:51 → EDSTATUS 12-25 09:00
PROVIDERS: ADMIT Obstetrics & Gynecology; ATTEND Obstetrics & Gynecology
PROC: 10D00Z1 Extraction of Products of Conception, Low, Open Approach (ICD-10-PCS; principal; 2017-12-24 08:15)
DX: O34.211 Maternal care for low transverse scar from previous cesarean delivery (principal); O99.354 Diseases of the nervous system complicating childbirth; G93.5 Compression of brain; O69.81X1 Labor and delivery complicated by cord around neck, without compression, fetus 1; Z37.0 Single live birth; Z3A.39 39 weeks gestation of pregnancy